=== PATIENT | female | born 1955 | race Caucasian/White ===

== ENCOUNTER 2025-10-13 23:38 | Emergency (ER) | payer MEDICARE, SELFPAY ==
--- OUTSIDE RECORDS SUMMARY | 2025-04-13 04:29 | XMS_ITS ---
Author Organization [facility] Address [address] [place] [address] Care Team Providers Care Guard Range Name Role Phone Migration, Provider Unavailable Unavailable REASON FOR VISIT TelEnc Social History Sex Assigned At : Social History Observation Description Sex Assigned At Female Encounters Encounter Location Date Provider Diagnosis [facility] [address] [place] [address] 04/13/2025 Provider Migration Plan Of Treatment Next Appt Details Provider Name:Alicia sams, 11/09/2025 03:00:00 PM, [address] [facility], [place], [address], [phone] Progress Notes * Bigg ROYALAnuragB:[birth year] (70 yo F)Acc No.[id number]:04/13/2025 Patient: Amisha FREDERICK :1955 A ge:69 Y S ex:Female Address:[address] [place] [address] [address], [place], [address] Subjective: * Chief Complaints: * T elEnc Objective: Past Vitals:* 07/10/2024 BP: 150/90 mm Hg, HR: 93 /mi n, Oxygen sat %: 95 %, Wt: 185.00 lbs, Wt-k.91 kg, Ht: 57.00 in, Ht-cm: 144.78 cm, BMI: 40.03 Index * 10/31/2023 BP: 138/88 mm Hg, HR: 104 /m in, Oxygen sat %: 93 %, Wt: 179.00 lbs, Wt-k.19 kg, Ht: 57.00 in, Ht-cm: 144.78 cm, BMI: 38.73 Index * 05/21/2023 BP: 140/90 mm Hg, HR: 79 /mi n, Oxygen sat %: 98 %, Wt: 173.00 lbs, Wt-k.47 kg, Ht: 57.00 in, Ht-cm: 144.78 cm, BMI: 37.44 Index * * Date:
--- OUTSIDE RECORDS SUMMARY | 2025-04-13 04:35 | XMS_ITS ---
Author Organization [facility] Address [address] [place] [address] Care Team Providers Care Roads Supervisor Name Role Phone Migration, Provider Unavailable Unavailable REASON FOR VISIT TelEnc Social History Sex Assigned At : Social History Observation Description Sex Assigned At Female Encounters Encounter Location Date Provider Diagnosis [facility] [address] [place] [address] 04/13/2025 Provider Migration Plan Of Treatment Next Appt Details Provider Name:Alicia sams, 11/09/2025 03:00:00 PM, [address] [facility], [place], [address], [phone] Progress Notes * Bigg ROYALAnuragB:[birth year] (70 yo F)Acc No.[id number]:04/13/2025 Patient: Amisha FREDERICK :1955 A ge:69 Y S ex:Female Address:[address] [place] [address] [address], [place], [address] Subjective: * Chief Complaints: * T elEnc [...]
--- OUTSIDE RECORDS SUMMARY | 2025-04-29 09:30 | XMS_ITS ---
Author Organization [facility] Address [address] [place] [address] Care Team Providers Care Crm Solution Architect Name Role Phone MRS. Alicia Craig Unavailable [phone] REASON FOR VISIT Follow Up Visit Social History Sex Assigned At : Social History Observation Description Sex Assigned At Female Encounters Encounter Location Date Provider Diagnosis [facility] [address] [place] [address] 04/29/2025 Alicia Craig Plan Of Treatment Next Appt Details Provider Name:Alicia A Aiden sams, 11/09/2025 03:00:00 PM, [address] [place], [address], [phone] Progress Notes * Davonte ROYAL:[birth year] (70 yo F)Acc No.[id number]:04/29/2025 Progress Notes Patient: Amisha Alvarado Provider: NICK Varghese :1955 A ge:69 Y S ex:Female Date:04/29/2025 Address:[address] [place], [place] [id number] Subjective: * Chief Complaints: * F ollow Up Visit Objective: Past Vitals:* 07/10/2024 BP: 150/90 mm [...] Ht-cm: 144.78 cm, BMI: 37.44 Index * Electronic signature of NICK Henderson on 10/14/2025 at 02:18 AM HOME BASED ASSISTANT Sign off status: Pending * Provider: NICK Varghese Date: 0 04/29/2025 Generated for Christine slaughter/Kelly/Mykel on: 1 12/15/2024 02:18 AM HOME BASED ASSISTANT
--- OUTSIDE RECORDS SUMMARY | 2025-05-22 09:30 | XMS_ITS ---
Author Organization [facility] Address [address] [place] [address] Care Team Providers Care Production Line Assembler Name Role Phone MRS. Alicia Craig Unavailable [phone] REASON FOR VISIT Follow Up Visit Social History Sex Assigned At : Social History Observation Description Sex Assigned At Female Encounters Encounter Location Date Provider Diagnosis [facility] [address] [place] [address] 05/22/2025 Alicia Craig Plan Of Treatment Next Appt Details Provider Name:Alicia A Aiden sams, 11/09/2025 03:00:00 PM, [address] [place], [address], [phone] Progress Notes * Davonte ROYAL:[birth year] (70 yo F)Acc No.[id number]:05/22/2025 Progress Notes Patient: Amisha Alvarado Provider: NICK Varghese :1955 A ge:70 Y S ex:Female Date:05/22/2025 Address:[address] [place] [phone] Subjective: * Chief Complaints: * F ollow [...] NICK Henderson on 10/14/2025 at 02:18 AM AIRPORT DUTY MANAGER Sign off status: Pending * Provider: NICK Varghese Date: 0 05/22/2025 Generated for Christine slaughter/Kelly/Mykel on: 1 12/15/2024 02:18 AM AIRPORT DUTY MANAGER
--- OUTSIDE RECORDS SUMMARY | 2025-06-12 07:00 | XMS_ITS ---
Author Organization [facility] Address [address] [place] [address] Care Team Providers Care Gyroscopic Instrument Tester Name Role Phone MRS. Alicia Craig Unavailable [phone] Results Component Value Reference Range Notes CBC With Differential/Platel et Reviewed date:07/24/2025 12:00:00 AM Interpretation: Performing Lab: Notes/Report: Baso (Absolute) 0.0 x10E3/uL 0.0-0.2 Basos 0 % Not Estab. Eos 1 % Not Estab. Eos (Absolute) 0.1 x10E3/uL 0.0-0.4 Hematocrit 48.8 % 34.0-46.6 Hemoglobin 15.4 g/dL 11.1-15.9 Immature Grans (Abs) 0.0 x10E3/uL 0.0-0.1 Immature Granulocytes 0 % Not Estab. Lymphs 33 % Not Estab. Lymphs (Absolute) 2.1 x10E3/uL 0.7-3.1 MCH 31.6 pg 26.6-33.0 MCHC 31.6 g/dL 31.5-35.7 MCV 100 fL 79-97 Monocytes 7 % Not Estab. Monocytes(Absolute) 0.5 x10E3/uL 0.1-0.9 Neutrophils 58 % Not Estab. Neutrophils (Absolute) 3.7 x10E3/uL 1.4-7.0 Platelets 171 x10E3/uL 150-450 RBC 4.87 x10E6/uL 3.77-5.28 RDW 13.1 % 11.7-15.4 WBC 6.5 x10E3/uL 3.4-10.8 Comp. Metabolic Panel (14) Reviewed date:07/24/2025 12:00:00 AM Interpretation: Performing Lab: Notes/Report: Albumin 4.0 g/dL 3.8-4.8 Alkaline Phosphatase 80 IU/L 49-135 ALT (SGPT) 36 IU/L 0-32 AST (SGOT) 28 IU/L 0-40 Bilirubin, Total 0.3 mg/dL 0.0-1.2 BUN 12 mg/dL 8-27 BUN/Creatinine Ratio 15 12-28 Calcium 9.0 mg/dL 8.7-10.3 Carbon Dioxide, Total 25 mmol/L 20-29 Chloride 103 mmol/L 96-106 Creatinine 0.78 mg/dL 0.57-1.00 eGFR 81 mL/min/1.73 >59 Globulin, Total 2.3 g/dL 1.5-4.5 Glucose 90 mg/dL 70-99 Potassium 4.2 mmol/L 3.5-5.2 Protein, Total 6.3 g/dL 6.0-8.5 Sodium 142 mmol/L 134-144 Hemoglobin A1c Reviewed date:07/24/2025 12:00:00 AM Interpretation: Performing Lab: Notes/Report: Hemoglobin A1c 5.8 % 4.8-5.6 LIPID PANEL Reviewed date:07/24/2025 12:00:00 AM Interpretation: Performing Lab: Notes/Report: CHOLESTEROL, TOTAL 170 mg/dL 100-199 HDL CHOLESTEROL 45 mg/dL >39 LDL Chol Calc (NIH) 103 mg/dL 0-99 TRIGLYCERIDES 121 mg/dL 0-149 VLDL Cholesterol Ish 22 mg/dL 5-40 TSH Rfx on Abnormal to Free T4 Reviewed date:07/24/2025 12:00:00 AM Interpretation: Performing Lab: Notes/Report: TSH 2.690 uIU/mL 0.450-4.500 REASON FOR VISIT CPE Social History Sex Assigned At : Social History Observation Description Sex Assigned At Female Vital Signs Blood pressure systolic 117 mm Hg 06/12/20 25 Blood pressure diastolic 82 mm Hg 025 Heart Rate 89 /min 06/12/2025 Height 57.00 in 06/12/2025 Weight 184.00 lbs 06/12/2025 BMI 39.82 kg/m2 06/12/2025 Height-cm 144.78 cm 06/12/2025 Weight-kg 83.46 kg 06/12/2025 Encounters Encounter Location Date Provider Diagnosis [facility] [address] [facility] [place] [address] 06/12/2025 Alicia Craig Encounter for screen ing for cardiovascular disorders Z13.6 ; Pain in right shoulder M25.511 ; Body mass index (BMI) 39.0-39.9, adult Z68.39 ; Pain in left foot M79.672 and Encounter for general adult medical examination without abnormal findings Z00.00 Assessments Encounter Date Diagnosis (ICD Code) Assessment Notes Treatment Notes Treatment Clinical Notes Section Notes 06/12/2025 Encounter for screening for cardiovascular disorders (ICD-10 - Z13.6) 06/12/2025 Pain in right shoulder (ICD-10 - M25.511) 06/12/2025 Body mass index (BMI) 39.0-39.9, adult (ICD-10 - Z68.39) 06/12/2025 Pain in left foot (ICD-10 - M79.672) 06/12/2025 Encounter for general adult medical examination without abnormal findings (ICD-10 - Z00.00) Plan Of Treatment Next Appt Details Provider Name:Alicia sams, 11/09/2025 03:00:00 PM, [address] [facility], [place], [address], [phone] History and Physical Notes * HPI (History of Present Illness) Category Sub-Category Detail Notes Category Not es Migrated HPI shoulder pain:: Location: right shoulder. The pain is aggravated by bending, lifting, movement and pushing. Associated symptoms include decreased mobility, joint tenderness and weakness. Hand Dominance: right., , foot pain:: Severity level is moderate-severe. Location: left foot. The pain is aggravated by bending, walking and standing. There are no relieving factors. Associated symptoms include decreased mobility, joint tenderness and weakness. Hand Dominance: right. Additional information: left foot bunion and hammer toe, has tried OTC splints etc with no relief, had a custom orthotic in the past but it was painful and did not fit well, she fell while wearing due to having to wear extra large shoes to accommodate the brace., , medicare preventive:: Functional Status: (Functional status has not changed) on 06/12/2025. SLUMS assessment completed, with a total score of 29, Normal. Cognitive Status: (Cognitive status has not changed) on 06/12/2025. The ''Up and Go'' test took less than 30 seconds andthe patient does not need help with activities of daily living. The patient is not at risk for falls. The patient has not fallen in the last year. The fall(s) did not result in injury. Patient's activity level is moderate. Patient exercises 2-3 times/week. The patient has smoke detectors, carbon monoxide detectors in the home. The patient does not have firearms in the home. There is no radon in the patient's home. Patient reports using a seatbelt in vehicles. Patient denies recent weight gain. Patient denies recent weight loss. Relevant history is negative for alcohol use Progress Notes * Starr ROYALB:[birth year] (70 yo F)Acc No.[id number]:06/12/2025 Progress Notes Patient: Amisha Alvarado Provider: NICK Varghese :1955 A ge:70 Y S ex:Female Date:06/12/2025 Address:[address] [place] [address] Subjective: * Chief Complaints: * C PE * HPI: M igrated HPI: shoulder pain:: Location: right shoulder. The pain is aggravated by bending, lifting, movement and pushing. Associated symptoms include decreased mobility, joint tenderness and weakness. Hand Dominance: right., , foot pain:: Severity level is moderate-severe. Location: left foot. The pain is aggravated by bending, walking and standing. There are no relieving factors. Associated symptoms include decreased mobility, joint tenderness and weakness. Hand Dominance: right. Additional information: left foot bunion and hammer toe, has tried OTC splints etc with no relief, had a custom orthotic in the past but it was painful and did not fit well, she fell while wearing due to having to wear extra large shoes to accommodate the brace., , medicare preventive:: Functional Status: (Functional status has not changed) on 06/12/2025. SLUMS assessment completed, with a total score of 29, Normal. Cognitive Status: (Cognitive status has not changed) on 06/12/2025. The ''Up and Go'' test took less than 30 seconds andthe patient does not need help with activities of daily living. The patient is not at risk for falls. The patient has not fallen in the last year. The fall(s) did not result in injury. Patient's activity level is moderate. Patient exercises 2-3 times/week. The patient has smoke detectors, carbon monoxide detectors in the home. The patient does not have firearms in the home. There is no radon in the patient's home. Patient reports using a seatbelt in vehicles. Patient denies recent weight gain. Patient denies recent weight loss. Relevant history is negative for alcohol use. * ROS: R OS System :ENMT :Ear drainage, Hearing loss, Nasal drainage, Otalgia, Sinus pressure and Sore throat. -Negative, ROS System : :Dysuria, Hematuria, Polyuria (Genitourinary), Urinary frequency, Urinary incontinence and Urinary retention. -Negative, ROS System :Constitutional :Chills, Fatigue, Fever, Malaise, Night sweats, Weight gain and Weight loss. -Negative, ROS System :Respiratory :Chronic cough, Cough, Dyspnea, Known TB exposure and Wheezing. -Negative, ROS System :MS :Difficulty with ADLs and Weakness in legs. -Negative, ROS System :Eyes :Eye discharge, Eye pain and Vision changes. -Negative, ROS System :Cardio :Chest pain, Claudication, Edema and Irregular heartbeat/palpitations. -Negative, ROS System :MS :Decreased mobility, Joint tenderness, Weakness. -Positive, ROS System :Allergic/Immuno :Contact allergy, Environmental allergies, Food allergies and Seasonal allergies. -Negative, ROS System :Psych :Anxiety, Depression and Insomnia. -Negative, ROS System :GI :Abdominal pain, Blood in stool, Change in stool pattern, Constipation, Decreased appetite, Diarrhea, Heartburn, Nausea and Vomiting. -Negative. Objective: * Vitals: B P: 117/82 mm Hg, HR: 89 /min, Wt: 184.00 lbs, Wt-k.46 kg, Ht: 57.00 in, Ht- cm: 144.78 cm, BMI: 39.82 Index. Past Vitals:* 07/10/2024 BP: 150/90 mm Hg, [...] in, Ht-cm: 144.78 cm, BMI: 37.44 Index Assessment: * Assessment: 1. P ain in right shoulder - M25.511 2 . P ain in left foot - M79.672 ? 3 . E ncounter for general adult medical examination without abnormal findings - Z00.00 4 . E ncounter for screening for cardiovascular disorders - Z13.6 5. B chandan mass index (BMI) 39.0-39.9, adult - Z68.39 Plan: * Labs: * L ab: CBC With Differential/Platelet (Collection Date & Time - 07/23/2025) Value Reference Range B aso (Absolute) 0.0 x10E3/uL 0.0-0.2 * B asos 0 % Not Estab. * E os 1 % Not Estab. * E os (Absolute) 0.1 x10E3/uL 0.0-0.4 * H ematocrit 48.8 % 34.0-46.6 * H emoglobin 15.4 g/dL 11.1-15.9 * I mmature Grans (Abs) 0.0 x10E3/uL 0.0-0.1 * I mmature Granulocytes 0 % Not Estab. * L ymphs 33 % Not Estab. * L ymphs (Absolute) 2.1 x10E3/uL 0.7-3.1 * M CH 31.6 pg 26.6-33.0 * M CHC 31.6 g/dL 31.5-35.7 * M CV 100 fL 79-97 * M onocytes 7 % Not Estab. * M onocytes(Absolute) 0.5 x10E3/uL 0.1-0.9 * N eutrophils 58 % Not Estab. * N eutrophils (Absolute) 3.7 x10E3/uL 1.4-7.0 * P latelets 171 x10E3/uL 150-450 * R BC 4.87 x10E6/uL 3.77-5.28 * R DW 13.1 % 11.7-15.4 * W BC 6.5 x10E3/uL 3.4-10.8 ?Lab: Comp. Metabolic Panel (14) (Collection Date & Time - 07/23/2025)* Value Reference Range A lbumin 4.0 g/dL 3.8-4.8 * A lkaline Phosphatase 80 IU/L 49-135 * A LT (SGPT) 36 IU/L 0-32 * A ST (SGOT) 28 IU/L 0-40 * B ilirubin, Total 0.3 mg/dL 0.0-1.2 * B UN 12 mg/dL 8-27 * B UN/Creatinine Ratio 15 12-28 * C alcium 9.0 mg/dL 8.7-10.3 * C arbon Dioxide, Total 25 mmol/L 20-29 * C hloride 103 mmol/L 96-106 * C reatinine 0.78 mg/dL 0.57-1.00 * e GFR 81 mL/min/1.73 >59 * G lobulin, Total 2.3 g/dL 1.5-4.5 * G lucose 90 mg/dL 70-99 * P otassium 4.2 mmol/L 3.5-5.2 * P rotein, Total 6.3 g/dL 6.0-8.5 * S odium 142 mmol/L 134-144 ?Lab: Hemoglobin A1c (Collection Date & Time - 07/23/2025)* Value Reference Range H emoglobin A1c 5.8 % 4.8-5.6 ?Lab: LIPID PANEL (Collection Date & Time - 07/23/2025)* Value Reference Range C HOLESTEROL, TOTAL 170 mg/dL 100-199 * H DL CHOLESTEROL 45 mg/dL >39 * L DL Chol Calc ([facility]) 103 mg/dL 0-99 * T RIGLYCERIDES 121 mg/dL 0-149 * V LDL Cholesterol Ish 22 mg/dL 5-40 ?Lab: TSH Rfx on Abnormal to Free T4 (Collection Date & Time - 07/23/2025)* Value Reference Range T SH 2.690 uIU/mL 0.450-4.500 * Procedure Codes: 9 3000 -ELECTROCARDIOGRAM, [id number] ANNUAL WELLNESS VST; PPS SUBSQT VST Billing Information: * Procedure Codes: 68040 -ELECTROCARDIOGRAM, COMPLETE. G0439 ANNUAL WELLNESS VST; PPS SUBSQT VST. * Electronic signature of Alicia NICK Craig on 10/14/2025 at 02:19 AM ACTUARIAL INTERNSHIP Sign off status: Pending * Provider: NICK Varghese Date: 0 06/12/2025 Generated for Christine slaughter/Kelly/Mykel on: 1 12/15/2024 02:19 AM ACTUARIAL INTERNSHIP
--- OUTSIDE RECORDS SUMMARY | 2025-08-22 03:00 | XMS_ITS ---
Author Organization [facility] Address [address] [place] [address] Care Team Providers Care Delivery Table Feeder Name Role Phone Migration, Provider Unavailable Unavailable REASON FOR VISIT EMR-[facility] Social History Sex Assigned At : Social History Observation Description Sex Assigned At Female Encounters Encounter Location Date Provider Diagnosis [facility] [address] [place] [address] 08/22/2025 Provider Migration Plan Of Treatment Medication Medication Name Sig Start Date Stop Date Notes hydroCHLOROthiazide 12.5 MG Tablet take 1 tablet by oral route every day Oral 12/12/2024 03/31/2025 Doxycycline Hyclate 100 MG Capsule take 1 capsule by oral route 2 times every day Oral 07/02/2023 07/11/2023 Lunesta 2 MG Tablet take 1 tablet by ora l route every day at bedtime Oral 04/09/2025 07/10/2025 valACYclovir HCl 1 GM Tablet take 1 tabl et by oral route every 24 hours Oral 11/25/2024 03/31/2025 Ciprofloxacin HCl 500 MG Tablet take 1 t ablet by oral route every 12 hours Oral 05/21/2023 07/30/2023 Wegovy 0.25 MG/0.5ML Solutio n Auto-injector inject (0.25MG) by subcutaneous route every week on the same day of each week Subcutaneous 10/31/2023 06/05/2024 Losartan Potassium 100 MG Tablet take 1 tablet by oral route every day Oral 11/25/2024 07/03/2025 Amoxicillin-Pot Clavulanate 875-125 MG Tablet take 1 tablet by oral route every 12 hours Oral 11/14/2023 11/23/2023 Next Appt Details Provider Name:Alicia Wolfe ry, 11/09/2025 03:00:00 PM, [address] [facility], [place], [address], [phone] Progress Notes * Starr LANEB:[birth year] (70 yo F)Acc No.[id number]:08/22/2025 Patient: Amisha FREDERICK :1955 A ge:70 Y S ex:Female Address:[address] [place] [address], [address], [address] * Refills Stop Ciprofloxacin HCl Tablet, 500 MG, Oral, 10, take 1 tablet by oral route every 12 hours Stop Doxycycline Hyclate Capsule, 100 MG, Oral, 20, take 1 capsule by oral route 2 times every day Stop Wegovy Solution Auto-injector, 0.25 MG/0.5ML, Subcutaneous, 2, inject (0.25MG) by subcutaneous route every week on the same day of each week Stop Amoxicillin-Pot Clavulanate Tablet, 875-125 MG, Oral, 20, take 1 tablet by oral route every 12 hours Stop Lunesta Tablet, 2 MG, Oral, 90, take 1 tablet by oral route every day at bedtime Stop valACYclovir HCl Tablet, 1 GM, Oral, 90, take 1 tablet by oral route every 24 hours Stop Amoxicillin-Pot Clavulanate Tablet, 875-125 MG, Oral, 20, take 1 tablet by oral route every 12 hours Stop hydroCHLOROthiazide Tablet, 12.5 MG, Oral, 90, take 1 tablet by oral route every day Stop Losartan Potassium Tablet, 100 MG, Oral, 90, take 1 tablet by oral route every day Stop Losartan Potassium Tablet, 100 MG, Oral, 90, take 1 tablet by oral route every day Stop Losartan Potassium Tablet, 100 MG, Oral, 90, take 1 tablet by oral route every day Stop Lunesta Tablet, 2 MG, Oral, 30, take 1 tablet by oral route every day at bedtime Stop Lunesta Tablet, 2 MG, Oral, 90, take 1 tablet by oral route every day at bedtime Stop hydroCHLOROthiazide Tablet, 12.5 MG, Oral, 90, take 1 tablet by oral route every day Stop Losartan Potassium Tablet, 100 MG, Oral, 90, take 1 tablet by oral route every day Stop valACYclovir HCl Tablet, 1 GM, Oral, 90, take 1 tablet by oral route every 24 hours Stop hydroCHLOROthiazide Tablet, 12.5 MG, Oral, 90, take 1 tablet by oral route every day Stop Losartan Potassium Tablet, 100 MG, Oral, 90, take 1 tablet by oral route every day Stop Lunesta Tablet, 2 MG, Oral, 90, take 1 tablet by oral route every day at bedtime Stop Amoxicillin-Pot Clavulanate Tablet, 875-125 MG, Oral, 20, take 1 tablet by oral route every 12 hours Stop Lunesta Tablet, 2 MG, Oral, 90, take 1 tablet by oral route every day at bedtime Stop Losartan Potassium Tablet, 100 MG, Oral, 0, take 1 tablet by oral route every day Stop Losartan Potassium Tablet, 100 MG, Oral, 90, take 1 tablet by oral route every day Stop Losartan Potassium Tablet, 100 MG, Oral, 90, take 1 tablet by oral route every day Stop valACYclovir HCl Tablet, 1 GM, Oral, 90, take 1 tablet by oral route every 24 hours Subjective: * Chief Complaints: * E MR-Paddy Objective: Past Vitals:* 07/10/2024 BP: 150/90 mm [...]
--- OUTSIDE RECORDS SUMMARY | 2025-08-23 03:00 | XMS_ITS ---
Author Organization [facility] Address [address] [place] [address] Care Team Providers Care Yarn Sizer Name Role Phone Migration, Provider Unavailable Unavailable Allergies No Known Allergies REASON FOR VISIT EMR-[facility] Medications Medication SIG (Take, Route, Frequency, Duration) Notes Start Date End Date Status [place] Bergamot 500 mg capsule 500 mg CAPSULE ORAL *Reorder from [employer] for eRx and Interaction Alerts* Active ZyrTEC Allergy 10 MG Tablet take 1 tablet by oral route every day at bedtime Oral Active Mucinex Maximum Strength 1200 MG Tablet Extended Release 12 Hour Oral Active Pepcid 20 MG Tablet take 1 tablet by oral route every day Oral Active Flonase Allergy Relief 50 MCG/ACT Suspension spray 1 - 2 spray by intranasal route every day in each nostril as needed Nasal Active Lunesta 2 MG Tablet TAKE 1 TABLET BY MOUTH AT BEDTIME Oral 07/10/2025 Active Claritin 10 mg Tablet take 1 tablet by oral route every day Oral Active valACYclovir HCl 1 GM Tablet take 1 tablet by oral route every 24 hours Oral 03/31/2025 Active hydroCHLOROthiazide 12.5 MG Tablet take 1 tablet by oral route every day Oral 03/31/2025 Active Losartan Potassium 100 MG Tablet take 1 tablet by oral route every day Oral 07/03/2025 Active Social History Sex Assigned At : Social History Observation Description Sex Assigned At Female Social History Additional Details Category Social Info Options Details Migrated Social History Migrated Social History Do you drink alcohol: N,Activity level: moderate,Exercise frequency: 2-3 times/week Encounters Encounter Location Date Provider Diagnosis [facility] [address] [place] [address] 08/23/2025 Provider Migration Plan Of Treatment Next Appt Details Provider Name:Alicia Goldman Aiden sams, 11/09/2025 03:00:00 PM, [address], [place], [address], [phone] Progress Notes * Starr ROYALB:[birth year] (70 yo F)Acc No.[id number]:08/23/2025 Patient: Amisah FREDERICK :1955 A ge:70 Y S ex:Female Address:[address] [place] [address], [address], [address] Subjective: * Chief Complaints: * E MR-Paddy * Medical History: Disease : Cancer of nose, basal cell * Surgical History: Sx_Procedure : mohs surgery Disease : chronic sinusitis, Sx_Procedure : sinus surgery * Family History: M igrated Family History: : Family history of Cardiovascular disease,Family history of Stroke,Family history of Basal cell carcinoma of skin,Family history of Hypertension. * Social History: M igrated Social History: M igrated Social History: Do you drink alcohol: N,Activity level: moderate,Exercise frequency: 2-3 times/week. * Medications: T akingCitrus Bergamot 500 mg capsule 500 mg CAPSULE ORAL , Notes to Pharmacist: *Reorder from [employer] for eRx and Interaction Alerts*valACYclovir HCl 1 GM Tablet take 1 tablet by oral route every 24 hours Oral Losartan Potassium 100 MG Tablet take 1 tablet by oral route every day Oral Lunesta 2 MG Tablet TAKE 1 TABLET BY MOUTH AT BEDTIME Oral Pepcid 20 MG Tablet take 1 tablet by oral route every day Oral ZyrTEC Allergy 10 MG Tablet take 1 tablet by oral route every day at bedtime Oral hydroCHLOROthiazide 12.5 MG Tablet take 1 tablet by oral route every day Oral Flonase Allergy Relief 50 MCG/ACT Suspension spray 1 - 2 spray by intranasal route every day in each nostril as needed Nasal Claritin 10 mg Tablet take 1 tablet by oral route every day Oral Mucinex Maximum Strength 1200 MG Tablet Extended Release 12 Hour Oral Taking [place] Bergamot 500 mg capsule 500 mg CAPSULE ORAL , Notes to Pharmacist: *Reorder from [employer] for eRx and Interaction Alerts*Taking valACYclovir HCl 1 GM Tablet take 1 tablet by oral route every 24 hours Oral Taking Losartan Potassium 100 MG Tablet take 1 tablet by oral route every day Oral Taking Lunesta 2 MG Tablet TAKE 1 TABLET BY MOUTH AT BEDTIME Oral Taking Pepcid 20 MG Tablet take 1 tablet by oral route every day Oral Taking ZyrTEC Allergy 10 MG Tablet take 1 tablet by oral route every day at bedtime Oral Taking hydroCHLOROthiazide 12.5 MG Tablet take 1 tablet by oral route every day Oral Taking Flonase Allergy Relief 50 MCG/ACT Suspension spray 1 - 2 spray by intranasal route every day in each nostril as needed Nasal Taking Claritin 10 mg Tablet take 1 tablet by oral route every day Oral Taking Mucinex Maximum Strength 1200 MG Tablet Extended Release 12 Hour Oral * Allergies: N .K.D.A. Objective: Past Vitals:* 07/10/2024 BP: 150/90 mm [...]
[2025-10-14 00:05] VITALS: BP 153/90; PULSE 86; RESP 18; O2SAT 96
--- NOTE | 2025-10-14 00:21 | PC.NURSE ---
EDP placed rhino rocket
--- NOTE | 2025-10-14 00:42 | ED.GENADULT ---
HPI - General Adult General Chief complaint: Epistaxis Stated complaint: nose bleed Time Seen by Provider: 10/14/25 00:22 History of Present Illness HPI narrative: 70-year-old female presents emergency department for evaluation for epistaxis. Patient states prior to arrival she been applying medication to her right nostril using a Q-tip when she had onset of bleeding. Related Data Home Medications ?Medication ?Instructions ?Recorded ?Confirmed ?Last Taken ?Type eszopiclone 2 mg tablet (Lunesta) 2 mg PO QHS 10/15/25 Unknown History hydrochlorothiazide 12.5 mg tablet 12.5 mg PO DAILY 10/15/25 Unknown History losartan 100 mg tablet 100 mg PO DAILY 10/15/25 Unknown History Allergies Allergy/AdvReac Type Severity Reaction Status Date / Time No Known Allergies Allergy Verified 10/15/25 13:55 Review of Systems Review of Systems: All systems reviewed & are unremarkable except as noted in HPI and below PMFSH Past Medical History Medical History Skin cancer Surgical History Surgical History (Updated 10/15/25 @ 14:10 by Kristie Jeffries CMA) H/O: hysterectomy Family History Family History Mother Hypertension Father Hypertension Cerebrovascular accident Grandparent Cerebrovascular accident Son No problems noted. Sibling Lymphoma Social History Social History Smoking status: Never smoker Alcohol intake: former Substance use: never Exam Narrative: APPEARANCE: Well appearing, no pain, no distress, well-nourished. HEAD: normocephalic, atraumatic. EYES: PERRLA/EOMI, conjunctivae clear. NOSE: Epistaxis thru right nostril EARS:TMS clear with good light reflex. THROAT: Pharynx clear, no exudate. NECK: Supple. No adenopathy, no masses. RESPIRATORY: Airway patent, respirations nonlabored. Clear to auscultation bilaterally, no rales, rhonchi, wheezing. CARDIOVASCULAR: Regular rate and rhythm without murmurs rubs or gallops. ABDOMINAL: Soft, nontender, nondistended, normal bowel sounds MUSCULOSKELETAL: Moves all extremities. Strength/ROM intact, No edema, No calf tenderness. NEURO: Alert. Cranial nerves II through XII intact. Good gait. Good coordination SKIN: Warm, dry. Normal Color Course Vital Signs Vital signs: Vital Signs Pulse Rate 86 10/14/25 00:05 Respiratory Rate 18 10/14/25 00:05 Blood Pressure 153/90 H 10/14/25 00:05 Pulse Oximetry 96 10/14/25 00:05 Oxygen Delivery Room Air 10/14/25 00:05 Pulse Rate 73 10/14/25 02:45 Respiratory Rate 18 10/14/25 02:45 Blood Pressure 141/84 H 10/14/25 02:45 Pulse Oximetry 98 10/14/25 02:45 Oxygen Delivery Room Air 10/14/25 00:05 Procedures Epistaxis Control right: Epistaxis Control Date: 10/14/25 Epistaxis Control Time: 00:43 Time Out Performed: Yes Nose Prepped With: oxymetazoline Direct Inspection: unable to visualize Clots Removed by: blowing nose Device Inserted: nasal tampon Device Size: 5 Patient Tolerated Procedure: well and no complications Epistaxis Control Narrative: Patient did have recurrent bleeding after the Afrin-soaked gauze was removed. Patient did have a 5.5 cm rhino rocket placed at 1:30 a.m.. MDM MDM Narrative Medical decision making narrative: 68-year-old female presents emergency department for evaluation for epistaxis. Patient reports she was applying medication to her dry nares with a Q-tip when she had onset the nasal bleeding out of the right naris. Patient did have an Afrin-soaked gauze was placed at 12:40 a.m. On re-evaluation at 2:30 a.m. patient has no active bleeding. Patient is comfortable the rhino rocket. Patient will be discharged home with outpatient follow-up with Dr. Roque Differential Diagnosis Differential Diagnosis: Epistaxis, thrombocytopenia Discharge Plan Discharge Clinical Impression: Epistaxis Patient Disposition: Home Condition: Stable Instructions: Antibiotic Form, Nosebleed (ED) Additional Instructions: Have close follow-up with Dr. Roque. You will need to have the rhino rocket removed in 1-2 days. Patient Language: Cape Verdean Prescriptions: No Action losartan 100 mg tablet 100 mg PO DAILY eszopiclone [Lunesta] 2 mg tablet 2 mg PO QHS hydrochlorothiazide 12.5 mg tablet 12.5 mg PO DAILY Follow-up/Referrals: Rudi Roque MD [Physician, Ear, Nose, Throat] UNKNOWN,DOCTOR [Non-Staff]
[2025-10-14 01:42] VITALS: BP 146/96; PULSE 78; RESP 19; O2SAT 99
--- OUTSIDE RECORDS SUMMARY | 2025-10-14 02:17 | XMS_ITS | Encounter Summary ---
Author Organization [facility] Address [address] [place] [address] Care Team Providers Care Automatic Paint Sprayer Operator Name Role Phone Lorena Santoro DO Primary Care Provider Encounter Details Date Type Department Care Team (Late st Contact Info) Description 08/21/2007 Outpatient Historical [facility] Internal Medicine [facility] and [address] [place] [address] [place] [address] [place] [address] Social History Tobacco Use Types Packs/Day Years Used Date Smoking Tobacco: Never Assessed Comments Unknown Sex and Gender Information Value Date Recorded Sex Assigned at Not on file Legal Sex Female 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
--- OUTSIDE RECORDS SUMMARY | 2025-10-14 02:17 | XMS_ITS | Encounter Summary ---
Author Organization [employer] Address [address] [place] [address] Care Team Providers Care Workcell Operator Name Role Phone Lorena Santoro DO Primary Care Provider [phone] Encounter Details Date Type Department Care Team (Latest Contact Info) Description 12/16/2008 Outpatient Historical [facility] Moisés Manzano MD [address] [address] Deviated Nasal Septum Social History Tobacco Use Types Packs/Day Years Used Date Smoking Tobacco: Never Assessed Comments No Sex and Gender Information Value Date Recorded Sex Assigned at Not on file Legal Sex Female 4:00 AM VOLUNTEER SERVICES ASSISTANT Gender Identity Not on file Sexual Orientation Not on file documented as of this encounter Plan of Treatment Not on file documented as of this encounter Procedures Procedure Name Priority Date/Time Associated Diagnosis Comments HEMOGLOBIN AND HEMATOCRIT Stat 01/04/2009 6:10 AM VOLUNTEER SERVICES ASSISTANT documented in this encounter Results * (ABNORMAL) HEMOGLOBIN AND HEMATOCRIT (01/04/2009 6:10 AM VOLUNTEER SERVICES ASSISTANT) HEMOGLOBIN 15.4(H) 11.8 - 14.8 g/dL [facility] HEMATOCRIT 45.7(H) 35.5 - 44.0 % [facility] Blood specimen (specimen) 01/04/2009 6:10 AM VOLUNTEER SERVICES ASSISTANT 01/04/2009 6:21 AM VOLUNTEER SERVICES ASSISTANT us Moisés Manzano MD HEMATOLOGY ORDERABLES Final Resu lt INTERFACE SYSTEM Refer to clinic/hospital department [facility] CLIA# [id number] [address] [place] [address] documented in this encounter Visit Diagnoses Diagnosis Deviated nasal septum documented in this encounter Care Teams Workcell Operator Relationship Specialty [place] [address] [facility] [address] [place] [id number] PCP - General Family Practice 10/21/20 12/22/21 documented as of this encounter
--- OUTSIDE RECORDS SUMMARY | 2025-10-14 02:17 | XMS_ITS | Clinical Summary ---
Author Organization [facility] Address [address] [place] [address] Care Team Providers Care Eco Industrial Development Consultant Name Role Phone Unavailable Primary Care Provider Unavailabl e Allergies Active Allergy Reactions Criticality Noted Date Comments Codeine Nausea and Vomiting Medium 11/15/2009 Medications cholecalciferol, Vitamin D3, (VITAMIN D3) 1,000 unit Capsule Take by mouth daily. Active lidocaine (Lidoderm) 5 % Adhesive Patch, Medicated Apply 1 Patch to affected area every 24 hours // 12 hours on and 12 hours off 10 Patch 9 Active Additional Information Patient not taking.Reported on 10/19/2021 hyoscyamine 0.125 mg Tablet, Sublingual Take 1 tablet up to 4 times daily for Spasms. 120 Tablet 09/22/2020 11:08 AM CURRICULUM SPECIALIST 0 Active traZODone (DESYREL) 50 mg tabletIndication s:Insomnia, unspecified type Take 0.5 Tablets (25 mg) by mouth daily at bedtime. 90 Tablet 1 11/07/2021 1:04 PM CURRICULUM SPECIALIST 1 Active trospium (SANCTURA) 20 mg Tablet Take 1 Tablet (20 mg) by mouth 2 times daily. 180 Tablet 1 08/24/2021 10:48 AM CDT 1 Active oxyCODONE-acetam inophen (Percocet) 5-325 mg tabletIndication s:Closed fracture of left wrist, initial encounter Take 1-2 Tablets by mouth every 4 hours as needed for severe pain. Max Daily Amount: 12 Tablets 20 Tablet 10/15/2021 2:17 PM CURRICULUM SPECIALIST 1 Active acetaminophen (TYLENOL) 325 mg tabletIndication s:Closed fracture of left wrist with routine healing, subsequent encounter Take 2 Tablets (650 mg) by mouth every 8 hours as needed for Pain. 60 Tablet 1 10/19/2021 11:37 AM CURRICULUM SPECIALIST 1 Active topiramate (Topamax) 50 mg tabletIndication s:Severe obesity (BMI 35.0-39.9) with comorbidity (CMS/HCC) Take 3 Tablets (150 mg) by mouth daily. 270 Tablet 3 11/07/2021 1:02 PM CURRICULUM SPECIALIST 1 Active Additional Information Patient taking differently:150 mg Oral DAILY,2 tablets, Reported on 10/27/2021 ibuprofen (MOTRIN) 800 mg tabletIndication s:Acute left-sided low back pain without sciatica Take 1 Tablet (800 mg) by mouth every 8 hours as needed for mild Pain. 30 Tablet 10/27/2021 1:19 PM CURRICULUM SPECIALIST 1 Active nicotine polacrilex (NICORETTE) 2 mg lozenge, mini 1 Lozenge (2 mg) by Mouth/Throat route every 2 hours as needed for Smoking Cessation. 135 Each 3 11/07/2021 1:04 PM CURRICULUM SPECIALIST 1 Active losartan (COZAAR) 50 mg tablet Take 2 Tablets (100 mg) by mouth daily // Pt will need to get labs before any more refills are approved 180 Tablet 3 11/28/2021 3:25 PM CURRICULUM SPECIALIST 2 Active Active Problems Problem Noted Date Diagnosed Date Fall 10/15/2021 Left wrist fracture 10/15/2021 Gait instability 10/15/2021 Leukocytosis (leucocytosis) 10/15/2021 Polycythemia 10/15/2021 Morbid obesity with body mass index of 40.0-49.9 10/15/2021 Crohn's disease of small and large intestines Tobacco use 07/30/2020 Benign essential HTN 01/02/2018 Severe obesity (BMI 35.0-39.9) with comorbidity 01/02/2018 Degenerative cervical spinal stenosis 08/01/2017 IBD (inflammatory bowel disease) 08/01/2017 DDD (degenerative disc disease), lumbar 07/04/20 Vitamin D deficiency 10/15/2014 Prediabetes 08/07/2011 Hypercholesteremia 08/07/2011 Fibromyalgia 03/15/2009 Urethral stricture unspecified Chronic interstitial cystitis Herpes simplex without mention of complication Regional enteritis of unspecified site Myalgia and myositis, unspecified Resolved Problems Problem Noted Date Diagnosed Date Resolved Date Ulcerative colitis without complications 10/21/2020 Immunizations Immunization Administration Dates Next Due (ADACEL/BOOSTRIX)(10 YR UP) TDAP VACCINE, 0.5ML, IM 10/14/2021 (PFIZER)(12 YR UP) COVID-19 VACCINE - EMERGENCY USE AUTHORIZATION, MRNA, [id number](PF) 30 MCG/0.3 ML IM SUSP 08/03/2021,02/01/2021,01/13/2021 (PNEUMOVAX 23)(50 YRS UP) PN EUMOCOCCAL POLYSACCHARIDE (PPV23) 0.5 ML, IM 07/09/2019 (SHINGRIX)(50 YRS UP) ZOSTER VACCINE RECOMBINANT, 0.5 ML, IM 06/14/2018,02/12/2018,01/20/2018 INFLUENZA VACCINE HIGH DOSE QUADRIVALENT 65 YR UP PF IM 07/15/2021,07/30/2020 Influenza Seasonal Unspecifi ed Formulation IM 06/30/2018,08/07/2017,09/05/2014,09/05,09/05/2012,09/18/2010 Influenza Vaccine High Dose 65+ Yrs IM 9 Influenza Vaccine Split 3+ Yrs PF IM 08/07/2017, 08/18/2014 PREVNAR (PCV13) pneumococcal 13-valent conjugate Vaccine 06/14/2018 Zoster Vaccine Live SQ 08/18/2014 Family History Medical History Relation Name Comments Cancer Brother j Hypertension Father f Stroke Father f Heart Disease Mother m Hypertension Mother m Melanoma Mother m Osteoporosis Mother m Relation Name Status Comments Brother j Father f Mother m Alive Social History Tobacco Use Types Packs/Day Years Used Date Smoking Tobacco: Former Cigarettes 0 Q uit: 09/05/2013 Smokeless Tobacco: Never Comments:mostly a non-smoker Alcohol Use Standard Drinks/Week Comments Never 0 (1 standard drink = 0.6 oz pur e alcohol) Financial Resource Strain Answer Date R ecorded How hard is it for you to pa y for the very basics like food, housing, medical care, and heating? Not very hard 10/27/2021 Food Insecurity Answer Date Recorded In the past 12 months, have you worried that your food would run out before you had money to buy more? Never true 10/27/2021 In the past 12 months, did y ou run out of food and didn't have money to buy more? Never true 10/27/2021 Transportation Needs Answer Date Record ed In the past 12 months, has l ack of transportation kept you from medical appointments or from getting medications? No 10/06 In the past 12 months, has l ack of transportation kept you from meetings, work, or from getting things needed for daily living? No 10/27/2021 Feeling Safe Answer Date Recorded Are you in a relationship wi th someone who hurts you emotionally and/or physically? No 07/14/2024 Comments No Sex and Gender Information Value Date Recorded Sex Assigned at Not on file Legal Sex Female 4:00 AM CURRICULUM SPECIALIST Gender Identity Not on file Sexual Orientation Not on file Last Filed Vital Signs Vital Sign Reading Time Taken Comments Blood Pressure 96/58 07/14/2024 10:35 AM CDT Pulse 95 07/14/2024 10:35 AM CDT Temperature 36.5 C (97.7 F) 07/14/2024 5:50 AM CDT Respiratory Rate 23 07/14/2024 5:40 AM CDT Oxygen Saturation 94% 07/14/2024 10:35 AM CDT Inhaled Oxygen Concentration - - Weight 80.7 kg (178 lb) 07/14/2024 5:36 AM CDT Height 144.8 cm (4' 9) 07/14/2024 5:36 AM CDT Body Mass Index 38.52 07/14/2024 5:36 AM CDT Plan of Treatment Health Maintenance Due Date Last Done Comments FIT-DNA Q 3 years 1998 FIT/FOBT Q 1 year 1998 Flex Sig/CT Colonography Q 5 years 1998 RSV VACCINE (60+ or ) (1 - Risk 50-74 years 1-dose series) 2003 INFLUENZA VACCINE (#1) 2025 , 07/30/2020, 08/28/2019, Additional history exists COVID-19 Vaccine (2024-2 6 season) 2025 08/03/2021, 02/01/2021, 01/13/2021 OSTEOPOROSIS SCREENING 11/02/2026 11/02/2021, 2013 COLORECTAL SCREENING 11/20/2028 11/20/2018 Colorectal Cancer Screening 11/20/2028 DTAP/TDAP/TD VACCINES (2 - T d or Tdap) 10/14/2031 10/14/2021 ZOSTER VACCINE Completed 06/14/2018, 02/03, 01/20/2018, Additional history exists PNEUMOCOCCAL VACCINE 50+ YEARS Completed 07/09/2019 , 06/14/2018 Procedures Procedure Name Priority Date/Time Associated Diagnosis Comments XR DEXA BONE DENSITY AXIAL 1 OR MORE SITES Routine 11/02/2021 1:50 PM CURRICULUM SPECIALIST Postmenopausal from Last 3 Months or Most Recently Relevant to Health Maintenance Results * XR DEXA BONE DENSITY AXIAL 1 OR MORE SITES (11/02/2021 1:50 PM CURRICULUM SPECIALIST) Anatomical Region Laterality Modality Digital Radiogra phy 11/02/2021 1:50 PM CURRICULUM SPECIALIST Narrative 11/02/2021 1:53 PM CURRICULUM SPECIALIST XR DEXA BONE DENSITY AXIAL 1 OR MORE SITES DATE: 11/02/2021 1:50 PM HISTORY: 66 years old Female with post menopausal symptoms. PROCEDURE: Planar images of the lumbar spine, forearm and hip(s) using a [employer] DEXA scanner for bone mineral density determination (BMD). Absolute bone mineral density measurements (in gm/cm^2) are available on the original PACS report. Comparison is made with the prior bone density performed 12/29/2013 FINDINGS: Lumbar Spine (L1-L4) T-score: +0.4 : +10.8% change Left femoral neck T-score: -1.6 : -4.1% change Right femoral neck T-score: -1.5 : +1.0% change Right Radius 33% T-score: -0.2 Comments: No prior right forearm bone mineral density measurements are available for comparison. IMPRESSION Osteopenic bone mineral density. STATISTICAL CHANGE: Significant increase in bone mineral density of the lumbar spine since the prior study. Significant decrease in bone mineral density of the left femoral neck since the prior study. A statistically significant change is defined as a change of greater than 2.5 standard deviations in the least significant difference from the prior study. Least significant differences are defined as follows: Lumbar spine: +/- 0.010 g/cm2 Femoral neck: +/- 0.014 g/cm2 Forearm radius 33%: +/- 0.020 g/cm2 DEFINITIONS: Normal: T-score above -1.0 Osteopenia T-score less than -1.0 and above -2.5 Osteoporosis: T-score < -2.5 FRAX FRACTURE RISK ASSESSMENT: Risk factors: None. 10 Year Probability Of Fracture -Major Osteoporotic: 9.0% -Hip: 1.2% -Comparison population: [place], A major osteoporotic fracture is defined as a fracture of the spine, forearm, hip or shoulder. FOLLOW-UP RECOMMENDATIONS: Patients without high risk factors for osteoporosis: T-score -1.0 to -1.5 - Consider repeat BMD in 5-10 years T-score -1.5 to -2.0 - Consider repeat BMD in 3-5 years T-score -2.0 to - 2.5 - Consider repeat BMD every 2 years Patients on treatment for osteoporosis: 1-2 years after initiation of treatment and every 2 [address] Alvin Mcdonough DO DICTATION LOCATION: Location 1 - [facility] Procedure Note Alvin Mcdonough DO - 11/02/2021 XR DEXA BONE DENSITY AXIAL 1 OR MORE SITES DATE: 11/02/2021 1:50 PM HISTORY: 66 years old Female with post menopausal symptoms. PROCEDURE: Planar images of the lumbar spine, forearm and hip(s) using a [employer] DEXA scanner for bone mineral density determination (BMD). Absolute bone mineral density measurements (in gm/cm^2) are available on the original PACS report. Comparison is made with the prior bone density performed 12/29/2013 FINDINGS: Lumbar Spine (L1-L4) T-score: +0.4 : +10.8% change Left femoral neck T-score: -1.6 : -4.1% change Right femoral neck T-score: -1.5 : +1.0% change Right Radius 33% T-score: -0.2 Comments: No prior right forearm bone mineral density measurements are available for comparison. IMPRESSION Osteopenic bone mineral density. STATISTICAL CHANGE: Significant increase in bone mineral density of the lumbar spine since the prior study. Significant decrease in bone mineral density of the left femoral neck since the prior study. A statistically significant change is defined as a change of greater than 2.5 standard deviations in the least significant difference from the prior study. Least significant differences are defined as follows: Lumbar spine: +/- 0.010 g/cm2 Femoral neck: +/- 0.014 g/cm2 Forearm radius 33%: +/- 0.020 g/cm2 DEFINITIONS: Normal: T-score above -1.0 Osteopenia T-score less than -1.0 and above -2.5 Osteoporosis: T-score < -2.5 FRAX FRACTURE RISK ASSESSMENT: Risk factors: None. 10 Year Probability Of Fracture -Major Osteoporotic: 9.0% -Hip: 1.2% -Comparison population: [place], A major osteoporotic fracture is defined as a fracture of the spine, forearm, hip or shoulder. FOLLOW-UP RECOMMENDATIONS: Patients without high risk factors for osteoporosis: T-score -1.0 to -1.5 - Consider repeat BMD in 5-10 years T-score -1.5 to -2.0 - Consider repeat BMD in 3-5 years T-score -2.0 to - 2.5 - Consider repeat BMD every 2 years Patients on treatment for osteoporosis: 1-2 years after initiation of treatment and every 2 [address] Alvin Mcdonough DO DICTATION LOCATION: Location [address] [place] [address] Lorena Santoro DO DIAGNOSTIC IMAGING ORDERABLES Final Result from Last 3 Months or Most Recently Relevant to Health Maintenance Insurance MEDICARE PART A AND B [facility] [id number] RX [employer] PLANS (INTERNAL) [facility] RX MEDIMPACT Member Subscriber Plan / Payer (Ef fective 2021-Present) Name:Amisha Royal Relation to Subscriber:Self Name:Amisha Royal Subscriber ID:Not on file Payer ID:Not on file Group ID:[id number] Type:RX Medicare Part D Address: [place], [place] Advance Directives For more information, please contact: [phone] * Full Code (Latest Code Status on File) Date Activated Date Inactivated Comments 10/15/2021 12:21 AM 10/15/2021 6:23 PM
--- OUTSIDE RECORDS SUMMARY | 2025-10-14 02:17 | XMS_ITS | Encounter Summary ---
Author Organization [facility] Address [address] [place] [address] Care Team Providers Care Governor Assembler Hydraulic Name Role Phone Lorena Santoro DO Primary Care Provider [phone] Encounter Details Date Type Department Care Team (Late st Contact Info) Description 08/01/2007 Outpatient Historical [facility] Internal Medicine [facility] and [address] [place] [address] [place] [address] [place] [address] Social History Tobacco Use Types Packs/Day Years Used Date Smoking Tobacco: Never Assessed Comments Unknown Sex and Gender Information Value Date Recorded Sex Assigned at Not on file Legal Sex Female 4: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
--- OUTSIDE RECORDS SUMMARY | 2025-10-14 02:17 | XMS_ITS | Clinical Summary ---
Author Organization [facility] Address [address] [place] [address] Care Team Providers Care Cabin Cleaner Name Role Phone No, Physician Primary Care Provider [phone] Allergies Active Allergy Reactions Criticality Noted Date Comments Codeine Other (See comments),Nausea And Vomiting Medium 11/15/2009 Reaction: UNKNOWN, Reaction: Reaction: UNKNOWN, Medications losartan (COZAAR) 100 mg tablet Take 100 mg by mouth every morning 05/10/2022 Active Active Problems Problem Noted Date Diagnosed Date Gait instability 10/15/2021 Left wrist fracture 10/15/2021 Leukocytosis (leucocytosis) 10/15/2021 Morbid obesity with body mass index of 40.0-49.9 10/15/2021 Polycythemia 10/15/2021 Bloating 06/20/2021 Chronic interstitial cystitis 06/20/2021 Herpes simplex virus (HSV) infection 06/20/2021 Intestinal malabsorption 06/20/2021 Myalgia and myositis, unspecified 06/20/2021 Urethral stricture 06/20/2021 Hallux valgus, bilateral 03/16/2021 Crohn's disease of small and large intestines Benign essential HTN 01/02/2018 Severe obesity (BMI 35.0-39.9) with comorbidity 01/02/2018 Degenerative cervical spinal stenosis 08/01/2017 IBD (inflammatory bowel disease) 08/01/2017 DDD (degenerative disc disease), lumbar 07/04/20 17 Pain of foot 04/28/2016 Vitamin D deficiency 10/15/2014 Hypercholesteremia 08/07/2011 Fibromyalgia 03/15/2009 Immunizations Immunization Administration Dates Next Due Influenza, Trivalent, High D ose, Split, Preservative Free, Intramuscular 08/28/2019 Influenza, Trivalent, IM (MDV) 8,09/05/2014,09/05/2013,09/05,09/18/2010 Influenza, Trivalent, Preser vative Free, Intramuscular 08/07/2017,08/18/2014 Influenza, Unspecified 07/15/2021,07/30/2020 Pfizer SARS-CoV-2 Monovalent Vaccination (12+ Yrs) PURPLE 08/03/2021 Pneumococcal Conjugate PCV 13 06/14/2018 Pneumococcal Polysaccharide PPV23 07/09/2019 Tdap 10/14/2021 ZOSTER LIVE 08/18/2014 ZOSTER Recombinant 06/14/2018,02/12/2018, 018 Surgical History Surgery Date Site/Laterality Comments FOOT SURGERY HAND SURGERY Medical History Medical History Date Comments Hypertension Arthritis Fibromyalgia Family History Medical History Relation Name Comments Heart disease Father Father Family history of cardiac disorder - (Added by TW Conv) Hypertension Father Father Family history of hypertension - (Added by TW Conv) Stroke Father Father Family history of cerebrovascular accident (CVA) - (Added by TW Conv) Heart disease Mother Mother Family history of cardiac disorder - (Added by TW Conv) Hypertension Mother Mother Family history of hypertension - (Added by TW Conv) Relation Name Status Comments Father Father Mother Mother Social History Tobacco Use Types Packs/Day Years Used Date Smoking Tobacco: Passive Smo ke Exposure - Never Smoker Vaping Smokeless Tobacco: Former Tobacco Cessation:Ready to Q uit: Yes Comments:occasional, during stressful times, short term Comments Unknown Sex and Gender Information Value Date Recorded Sex Assigned at Not on file Legal Sex Female 2:10 AM DIRECTOR SUPPLY CHAIN Gender Identity Female 03/11/2021 8:32 AM CDT Sexual Orientation Straight 03/11/2021 8: 32 AM CDT Last Filed Vital Signs Vital Sign Reading Time Taken Comments Blood Pressure 126/85 03/30/2021 11:04 AM CDT Pulse 83 03/30/2021 11:04 AM CDT Temperature - - Respiratory Rate - - Oxygen Saturation - - Inhaled Oxygen Concentration - - Weight 80.3 kg (177 lb) 06/20/2021 11:06 AM CDT Height 149.9 cm (4' 11) 06/20/2021 11:06 AM CDT Body Mass Index 35.75 06/20/2021 11:06 AM CDT Plan of Treatment Not on file Insurance MEDICARE REPU[employer] ACCESS CHOICE MEDICARE ANTHEM ACCESS CHOICE MEDICARE [facility] ACCESS CHOICE Care Teams Cabin Cleaner Relationship Specialty Start Date End Date No, Physician PCP - General 06/20/22
--- OUTSIDE RECORDS SUMMARY | 2025-10-14 02:17 | XMS_ITS | Encounter Summary ---
Author Organization [facility] Address [address] [place] [address] Care Team Providers Care Groundwater Consultant Name Role Phone Lorena Santoro DO Primary Care Provider [phone] Encounter Details Date Type Department Care Team (Late st Contact Info) Description 10/25/2007 Outpatient Historical [facility] Internal Medicine [facility] and [address] [place] [address] [place] [address] [place] [address] Social History Tobacco Use Types Packs/Day Years Used Date Smoking Tobacco: Never Assessed Comments Unknown Sex and Gender Information Value Date Recorded Sex Assigned at Not on file Legal Sex Female 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
--- OUTSIDE RECORDS SUMMARY | 2025-10-14 02:17 | XMS_ITS | Encounter Summary ---
Author Organization [facility] Address [address] [place] [address] Care Team Providers Care Branch Operation Evaluation Manager Name Role Phone Lorena Santoro DO Primary Care Provider [phone] Encounter Details Date Type Department Care Team (Late st Contact Info) Description 10/25/2007 Outpatient Historical [facility] Internal Medicine [facility] and [address] [place] [address] [place] [address] [address] [place] [address] Social History Tobacco Use Types Packs/Day Years Used Date Smoking Tobacco: Never Assessed Comments Unknown Sex and Gender Information Value Date Recorded Sex Assigned at Not on file Legal Sex Female 4: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
--- OUTSIDE RECORDS SUMMARY | 2025-10-14 02:18 | XMS_ITS | Encounter Summary ---
Author Organization [email or web address] Address [address] [place] [address] Care Team Providers Care Channel Man Name Role Phone Lorena Santoro DO Primary Care Provider [phone] Encounter Details Date Type Department Care Team (Late st Contact Info) Description 03/21/2006 Outpatient [facility] [address] [facility] [address] [place] [address] [facility] [address] [place] [address] Social History Tobacco Use Types Packs/Day Years Used Date Smoking Tobacco: Never Assessed Comments Unknown Sex and Gender Information Value Date Recorded Sex Assigned at Not on file Legal Sex Female 4:00 AM SERVICE DESK DIRECTOR Gender Identity Not on file Sexual Orientation Not on file documented as of this encounter Plan of Treatment Not on file documented as of this encounter Visit Diagnoses Not on filedocumented in this encounter Care Teams Channel Man Relationship Specialty [place] [address] [facility] [address] [place] [address] PCP - General Family Practice 10/21/20 12/22/21 documented as of this encounter
--- OUTSIDE RECORDS SUMMARY | 2025-10-14 02:18 | XMS_ITS | Encounter Summary ---
Author Organization [facility] Address [address] [place] [address] Care Team Providers Care Registry Nurse Name Role Phone Lorena aSntoro DO Primary Care Provider [phone] Encounter Details Date Type Department Care Team (Late st Contact Info) Description 02/05/2007 Outpatient Historical [facility] Internal Medicine [facility] [address] [place] [address] [address] [place] [address] Diamond Hatch MD [address] [facility] [address] [place] [address] Social History Tobacco Use Types Packs/Day Years Used Date Smoking Tobacco: Never Assessed Comments Unknown Sex and Gender Information Value Date Recorded Sex Assigned at Not on file Legal Sex Female 4:00 AM MEDICAL SUPERVISOR Gender Identity Not on file Sexual Orientation Not on file documented as of this encounter Plan of Treatment Not on file documented as of this encounter Visit Diagnoses Not on filedocumented in this encounter Care Teams Registry Nurse Relationship Specialty Start [place] [address] [facility] [address] [place] [address] PCP - General Family Practice 10/21/20 12/22/21 documented as of this encounter
--- OUTSIDE RECORDS SUMMARY | 2025-10-14 02:18 | XMS_ITS | Encounter Summary ---
Author Organization [facility] Address [address] [place] [address] Care Team Providers Care Research Advisor Name Role Phone Lorena Santoro DO Primary Care Provider [phone] Encounter Details Date Type Department Care Team (Late st Contact Info) Description 01/30/2007 Outpatient Historical [facility] Internal Medicine 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
--- OUTSIDE RECORDS SUMMARY | 2025-10-14 02:18 | XMS_ITS | Encounter Summary ---
Author Organization [facility] Address [address] [place] [address] Care Team Providers Care Agile Scrum Master Name Role Phone Lorena Santoro DO Primary Care Provider [phone] Encounter Details Date Type Department Care Team (Latest Contact Info) Description 12/22/2005 Inpatient Historical [facility] Natasha Jorge DO [address] [facility] [address] [place] [address] Musa Tony MD NO ADDRESS ON FILE INTRAMURAL LEIOMYOMA (Primary Dx) Social History Tobacco Use Types Packs/Day Years Used Date Smoking Tobacco: Never Assessed Comments Unknown Sex and Gender Information Value Date Recorded Sex Assigned at Not on file Legal Sex Female 4:00 AM SLAG MOTOR OPERATOR Gender Identity Not on file Sexual Orientation Not on file documented as of this encounter Plan of Treatment Not on file documented as of this encounter Procedures Procedure Name Priority Date/Time Associated Diagnosis Comments HEMOGLOBIN AND HEMATOCRIT Routine 12/23/2005 4:23 AM SLAG MOTOR OPERATOR POC , URINE Routine 12/22/2005 4:29 AM SLAG MOTOR OPERATOR HEMOGLOBIN AND HEMATOCRIT Routine 12/08/2005 2:55 PM SLAG MOTOR OPERATOR BASIC METABOLIC PANEL Routine 12/08/2005 2:55 PM SLAG MOTOR OPERATOR documented in this encounter Results * HEMOGLOBIN AND HEMATOCRIT (12/23/2005 4:23 AM SLAG MOTOR OPERATOR) HEMOGLOBIN 12.2 11.8 - 14.8 g/dL INTERFACE SYSTEM HEMATOCRIT 36.6 35.5 - 44.0 % INTERFACE SYSTEM 12/23/2005 4:23 AM SLAG MOTOR OPERATOR Bob [place] HEMATOLOGY ORDERABLES Final Res ult Performing Organization Address [facility] de Phone Number INTERFACE SYSTEM Refer to clinic/hospital department * POC , URINE (12/22/2005 4:29 AM SLAG MOTOR OPERATOR) HCG QUAL URINE Negative Negative INTER FACE SYSTEM SPECIFIC GRAVITY UA 1.030 1.001 - 1.035 INTERFACE SYSTEM 12/22/2005 4:29 AM SLAG MOTOR OPERATOR Natasha Jorge DO POINT OF CARE TESTING Final Re sult Performing Organization Address [facility] de Phone Number INTERFACE SYSTEM Refer to clinic/hospital department * (ABNORMAL) BASIC METABOLIC PANEL (12/08/2005 2:55 PM SLAG MOTOR OPERATOR) GLUCOSE 105 65 - 109 mg/dL INTERFACE SYSTEM CREATININE 1.0 0.4 - 1.2 mg/dL INTERFACE SYSTEM CALCIUM 9.7 8.6 - 10.2 mg/dL INTERFACE SYSTEM BUN 23(H) 6 - 20 mg/dL INTERFACE SYSTEM SODIUM 140 135 - 145 mmol/L INTERFACE SYSTEM POTASSIUM 4.0 3.5 - 4.9 mmol/L INTERFACE SYSTEM CHLORIDE 102 96 - 108 mmol/L INTERFACE SYSTEM CO2 28 22 - 30 mmol/L INTERFACE SYSTEM 12/08/2005 2:55 PM SLAG MOTOR OPERATOR Natasha Jorge DO CHEMISTRY ORDERABLES Final Res ult Performing Organization Address City/[facility] Co de Phone Number INTERFACE SYSTEM Refer to clinic/hospital department * (ABNORMAL) HEMOGLOBIN AND HEMATOCRIT (12/08/2005 2:55 PM SLAG MOTOR OPERATOR) HEMOGLOBIN 15.2(H) 11.8 - 14.8 g/dL INTERFACE SYSTEM HEMATOCRIT 43.5 35.5 - 44.0 % INTERFACE SYSTEM 12/08/2005 2:55 PM SLAG MOTOR OPERATOR us Natasha Jorge DO HEMATOLOGY ORDERABLES Final Re sult INTERFACE SYSTEM Refer to clinic/hospital department documented in this encounter Visit Diagnoses Diagnosis Intramural leiomyoma of uterus- Primary documented in this encounter Care Teams Agile Scrum Master Relationship Specialty Start [place] [address] [facility] [address] [place] [address] PCP - General Family Practice 10/21/20 12/22/21 documented as of this encounter
--- OUTSIDE RECORDS SUMMARY | 2025-10-14 02:18 | XMS_ITS | Encounter Summary ---
Author Organization [facility] Address [address] [place] [address] Care Team Providers Care Provider Enrollment Specialist Name Role Phone Lorena Santoro DO Primary Care Provider [phone] Encounter Details Date Type Department Care Team (Late st Contact Info) Description 03/06/2007 Outpatient Historical [facility] Internal Medicine [facility] and [address] [place] [address] [place] [address] [facility] [address] [place] [address] Social History Tobacco Use Types Packs/Day Years Used Date Smoking Tobacco: Never Assessed Comments Unknown Sex and Gender Information Value Date Recorded Sex Assigned at Not on file Legal Sex Female 4:00 AM PRODUCTION SUPERINTENDENT HYDRO Gender Identity Not on file Sexual Orientation Not on file documented as of this encounter Plan of Treatment Not on file documented as of this encounter Visit Diagnoses Not on filedocumented in this encounter Care Teams Provider Enrollment Specialist Relationship Specialty Start [place] [address] [facility] [address] [place] [address] PCP - General Family Practice 10/21/20 12/22/21 documented as of this encounter
--- OUTSIDE RECORDS SUMMARY | 2025-10-14 02:18 | XMS_ITS | Encounter Summary ---
Author Organization [facility] Address [address] [place] [address] Care Team Providers Care Kitchen Mechanic Name Role Phone Lorena Santoro DO Primary Care Provider [phone] Encounter Details Date Type Department Care Team (Late st Contact Info) Description 09/28/2005 Outpatient [facility] [address] [facility] [place] [facility] [place] [address] [place] [address] [facility] [address] [place] [address] Social History Tobacco Use Types Packs/Day Years Used Date Smoking Tobacco: Never Assessed Comments Unknown Sex and Gender Information Value Date Recorded Sex Assigned at Not on file Legal Sex Female 4:00 AM INTERNET MARKETING MANAGER Gender Identity Not on file Sexual Orientation Not on file documented as of this encounter Plan of Treatment Not on file documented as of this encounter Visit Diagnoses Not on filedocumented in this encounter Care Teams Kitchen Mechanic Relationship Specialty [place] [address] [facility] [address] [place] [address] PCP - General Family Practice 10/21/20 12/22/21 documented as of this encounter
--- OUTSIDE RECORDS SUMMARY | 2025-10-14 02:18 | XMS_ITS | Encounter Summary ---
Author Organization [facility] Address [address] [place] [address] Care Team Providers Care Pmo Lead Name Role Phone Lorena Santoro DO Primary Care Provider [phone] Encounter Details Date Type Department Care Team (Late st Contact Info) Description 11/22/2005 Outpatient Historical [facility] Support Services [facility] [address] [place] [address] [id number] Musa Tony MD NO ADDRESS ON FILE Social History Tobacco Use Types Packs/Day Years Used Date Smoking Tobacco: Never Assessed Comments Unknown Sex and Gender Information Value Date Recorded Sex Assigned at Not on file Legal Sex Female 4:00 AM CUTTER TENDER Gender Identity Not on file Sexual Orientation Not on file documented as of this encounter Plan of Treatment Not on file documented as of this encounter Visit Diagnoses Not on filedocumented in this encounter Care Teams Pmo Lead Relationship Specialty [place] [address] [facility] [address] [place] [address] PCP - General Family Practice 10/21/20 12/22/21 documented as of this encounter
--- OUTSIDE RECORDS SUMMARY | 2025-10-14 02:18 | XMS_ITS | Encounter Summary ---
Author Organization [facility] Address [address] [place] [address] Care Team Providers Care Machine Shop Apprentice Name Role Phone Lorena Santoro DO Primary Care Provider [phone] Encounter Details Date Type Department Care Team (Late st Contact Info) Description 05/20/2007 Outpatient Historical [facility] Internal Medicine [facility] and [address] [place] [address] [place] [address] [facility] [address] [place] [address] Social History Tobacco Use Types Packs/Day Years Used Date Smoking Tobacco: Never Assessed Comments Unknown Sex and Gender Information Value Date Recorded Sex Assigned at Not on file Legal Sex Female 4:00 AM INTERNAL RECRUITER Gender Identity Not on file Sexual Orientation Not on file documented as of this encounter Plan of Treatment Not on file documented as of this encounter Visit Diagnoses Not on filedocumented in this encounter Care Teams Machine Shop Apprentice Relationship Specialty [place] [address] [facility] [address] [place] [address] PCP - General Family Practice 10/21/20 12/22/21 documented as of this encounter
--- OUTSIDE RECORDS SUMMARY | 2025-10-14 02:18 | XMS_ITS | Encounter Summary ---
Author Organization [facility] Address [address] [place] [address] Care Team Providers Care Lead Database Administrator Name Role Phone Lorena Santoro DO Primary Care Provider [phone] Encounter Details Date Type Department Care Team (Late st Contact Info) Description 05/03/2007 Outpatient Historical [facility] Internal Medicine [facility] and [address] [place] [address] [place] [address] [facility] [address] [place] [address] Social History Tobacco Use Types Packs/Day Years Used Date Smoking Tobacco: Never Assessed Comments Unknown Sex and Gender Information Value Date Recorded Sex Assigned at Not on file Legal Sex Female 4:00 AM STEWARD DISHWASHER Gender Identity Not on file Sexual Orientation Not on file documented as of this encounter Plan of Treatment Not on file documented as of this encounter Visit Diagnoses Not on filedocumented in this encounter Care Teams Lead Database Administrator Relationship Specialty [place] [address] [facility] [address] [place] [address] PCP - General Family Practice 10/21/20 12/22/21 documented as of this encounter
--- OUTSIDE RECORDS SUMMARY | 2025-10-14 02:18 | XMS_ITS | Encounter Summary ---
Author Organization [facility] Address [address] [place] [address] Care Team Providers Care Business Continuity Planner Name Role Phone Lorena Santoro DO Primary Care Provider [phone] Encounter Details Date Type Department Care Team (Latest Contact Info) Description 02/17/2006 Outpatient [facility] [facility] [address] [place] [address] [place] [address] [facility] [address] [place] [address] Neck Sprain and Strain (Primary Dx) Social History Tobacco Use Types Packs/Day Years Used Date Smoking Tobacco: Never Assessed Comments Unknown Sex and Gender Information Value Date Recorded Sex Assigned at Not on file Legal Sex Female 4:00 AM MEMS DEVICE SCIENTIST Gender Identity Not on file Sexual Orientation Not on file documented as of this encounter Plan of Treatment Not on file documented as of this encounter Visit Diagnoses Diagnosis Sprain of neck- Primary documented in this encounter Care Teams Business Continuity Planner Relationship Specialty [place] [address] [facility] [address] [place] [address] PCP - General Family Practice 10/21/20 12/22/21 documented as of this encounter
--- OUTSIDE RECORDS SUMMARY | 2025-10-14 02:18 | XMS_ITS | Encounter Summary ---
Author Organization [facility] Address [address] [place] [address] Care Team Providers Care Hydro Plant Operator Name Role Phone Lorena Santoro DO Primary Care Provider [phone] Encounter Details Date Type Department Care Team (Latest Contact Info) Description 08/27/2005 Outpatient [facility] [employer] [facility] [address] [place] [address] [place] [address] [facility] [address] [place] [address] SPRAIN OF NECK (Primary Dx) Social History Tobacco Use Types Packs/Day Years Used Date Smoking Tobacco: Never Assessed Comments Unknown Sex and Gender Information Value Date Recorded Sex Assigned at Not on file Legal Sex Female 4:00 AM BALLAST REGULATOR OPERATOR Gender Identity Not on file Sexual Orientation Not on file documented as of this encounter Plan of Treatment Not on file documented as of this encounter Visit Diagnoses Diagnosis Sprain of neck- Primary documented in this encounter Care Teams Hydro Plant Operator Relationship Specialty Start [place] [address] [facility] [address] [place] [address] PCP - General Family Practice 10/21/20 12/22/21 documented as of this encounter
--- OUTSIDE RECORDS SUMMARY | 2025-10-14 02:18 | XMS_ITS | Encounter Summary ---
Author Organization [facility] Address [address] [place] [address] Care Team Providers Care Telecom Manager Name Role Phone Lorena Santoro DO Primary Care Provider [phone] Encounter Details Date Type Department Care Team (Late st Contact Info) Description 12/12/2005 Outpatient Historical [facility] Internal Medicine [facility] and [address] [place] [address] Diamond Hatch MD [address] [facility] [address] [place] [address] Social History Tobacco Use Types Packs/Day Years Used Date Smoking Tobacco: Never Assessed Comments Unknown Sex and Gender Information Value Date Recorded Sex Assigned at Not on file Legal Sex Female 4:00 AM LINE REPAIRER Gender Identity Not on file Sexual Orientation Not on file documented as of this encounter Plan of Treatment Not on file documented as of this encounter Visit Diagnoses Not on filedocumented in this encounter Care Teams Telecom Manager Relationship Specialty [place] [address] [facility] [address] [place] [address] PCP - General Family Practice 10/21/20 12/22/21 documented as of this encounter
--- OUTSIDE RECORDS SUMMARY | 2025-10-14 02:18 | XMS_ITS | Encounter Summary ---
Author Organization [facility] Address [address] [place] [address] Care Team Providers Care Touch Up Painter Name Role Phone Lorena Santoro DO Primary Care Provider [phone] Encounter Details Date Type Department Care Team (Late st Contact Info) Description 09/09/2005 Outpatient [facility] [address] [facility] [place] [facility] [place] [address] [place] [address] [facility] [address] [place] [address] Social History Tobacco Use Types Packs/Day Years Used Date Smoking Tobacco: Never Assessed Comments Unknown Sex and Gender Information Value Date Recorded Sex Assigned at Not on file Legal Sex Female 4:00 AM DEVELOPER DESIGNER Gender Identity Not on file Sexual Orientation Not on file documented as of this encounter Plan of Treatment Not on file documented as of this encounter Visit Diagnoses Not on filedocumented in this encounter Care Teams Touch Up Painter Relationship Specialty [place] [address] [facility] [address] [place] [address] PCP - General Family Practice 10/21/20 12/22/21 documented as of this encounter
--- OUTSIDE RECORDS SUMMARY | 2025-10-14 02:18 | XMS_ITS | Encounter Summary ---
Author Organization [facility] Address [address] [place] [address] Care Team Providers Care Flow Match Sofa Cutter Name Role Phone Lorena Santoro DO Primary Care Provider [phone] Encounter Details Date Type Department Care Team (Late st Contact Info) Description 05/11/2006 Outpatient Historical [facility] Al Macias MD [address] [address] Hypertrophy of Nasal Turbinates (Primary Dx); Chronic Rhinitis; Regional Enteritis of Unspecified Site (CMS/HCC); Unspecified Essential Hypertension; Tobacco Use Disorder; Depressive Disorder, not Elsewhere Classified Social History Tobacco Use Types Packs/Day Years Used Date Smoking Tobacco: Never Assessed Comments Unknown Sex and Gender Information Value Date Recorded Sex Assigned at Not on file Legal Sex Female 4:00 AM SHOWPLACE MANAGER Gender Identity Not on file Sexual Orientation Not on file documented as of this encounter Plan of Treatment Not on file documented as of this encounter Procedures Procedure Name Priority Date/Time Associated Diagnosis Comments HEMOGLOBIN AND HEMATOCRIT Routine 05/11/2006 9:04 AM CDT documented in this encounter Results * (ABNORMAL) HEMOGLOBIN AND HEMATOCRIT (05/11/2006 9:04 AM CDT) HEMOGLOBIN 15.2(H) 11.8 - 14.8 g/dL INTERFACE SYSTEM HEMATOCRIT 45.6(H) 35.5 - 44.0 % INTERFACE SYSTEM 05/11/2006 9:04 AM CDT us Al Macias MD HEMATOLOGY ORDERABLES Final Re sult INTERFACE SYSTEM Refer to clinic/hospital department documented in this encounter Visit Diagnoses Diagnosis Hypertrophy of nasal turbinates- Primary Chronic rhinitis Regional enteritis of unspecified site (CMS/HCC) Regional enteritis of unspecified site Unspecified essential hypertension Tobacco use disorder Depressive disorder, not elsewhere classified documented in this encounter Care Teams Flow Match Sofa Cutter Relationship Specialty [place] [address] [facility] [address] [place] [address] PCP - General Family Practice 10/21/20 12/22/21 documented as of this encounter
--- OUTSIDE RECORDS SUMMARY | 2025-10-14 02:18 | XMS_ITS | Encounter Summary ---
Author Organization [facility] Address [address] [place] [address] Care Team Providers Care Building Construction Ironworker Name Role Phone Lorena Santoro DO Primary Care Provider [phone] Encounter Details Date Type Department Care Team (Late st Contact Info) Description 09/06/2005 Outpatient Historical [facility] Internal Medicine [facility] and [address] [place] [address] [place] [address] [facility] [address] [place] [address] Social History Tobacco Use Types Packs/Day Years Used Date Smoking Tobacco: Never Assessed Comments Unknown Sex and Gender Information Value Date Recorded Sex Assigned at Not on file Legal Sex Female 4:00 AM FAMILY THERAPIST Gender Identity Not on file Sexual Orientation Not on file documented as of this encounter Plan of Treatment Not on file documented as of this encounter Visit Diagnoses Not on filedocumented in this encounter Care Teams Building Construction Ironworker Relationship Specialty [place] [address] [facility] [address] [place] [address] PCP - General Family Practice 10/21/20 12/22/21 documented as of this encounter
--- OUTSIDE RECORDS SUMMARY | 2025-10-14 02:18 | XMS_ITS | Encounter Summary ---
Author Organization [facility] Address [address] [place] [address] Care Team Providers Care Timber Packer Name Role Phone Lorena Santoro DO Primary Care Provider [phone] Encounter Details Date Type Department Care Team (Late st Contact Info) Description 05/02/2006 Outpatient Historical [facility] Internal Medicine [facility] and [address] [place] [address] [place] [address] [facility] [address] [place] [address] Social History Tobacco Use Types Packs/Day Years Used Date Smoking Tobacco: Never Assessed Comments Unknown Sex and Gender Information Value Date Recorded Sex Assigned at Not on file Legal Sex Female 4:00 AM DRILLING FIELD OPERATOR Gender Identity Not on file Sexual Orientation Not on file documented as of this encounter Plan of Treatment Not on file documented as of this encounter Visit Diagnoses Not on filedocumented in this encounter Care Teams Timber Packer Relationship Specialty [place] [address] [facility] [address] [place] [address] PCP - General Family Practice 10/21/20 12/22/21 documented as of this encounter
--- OUTSIDE RECORDS SUMMARY | 2025-10-14 02:18 | XMS_ITS | Encounter Summary ---
Author Organization [facility] Address [address] [place] [address] Care Team Providers Care Pole Maker Name Role Phone Lorena Santoro DO Primary Care Provider [phone] Encounter Details Date Type Department Care Team (Late st Contact Info) Description 12/08/2005 Outpatient Historical [facility] ([facility]) [address] [place] [address] Joshua Jaimes MD [address] [facility] [address] [place] [address] Social History Tobacco Use Types Packs/Day Years Used Date Smoking Tobacco: Never Assessed Comments Unknown Sex and Gender Information Value Date Recorded Sex Assigned at Not on file Legal Sex Female 4:00 AM PLANT PACKER Gender Identity Not on file Sexual Orientation Not on file documented as of this encounter Plan of Treatment Not on file documented as of this encounter Visit Diagnoses Not on filedocumented in this encounter Care Teams Pole Maker Relationship Specialty [place] [address] [facility] [address] [place] [address] PCP - General Family Practice 10/21/20 12/22/21 documented as of this encounter
--- OUTSIDE RECORDS SUMMARY | 2025-10-14 02:18 | XMS_ITS | Encounter Summary ---
Author Organization [facility] Address [address] [place] [address] Care Team Providers Care Supervisor Cell Room Name Role Phone Lorena Santoro DO Primary Care Provider [phone] Encounter Details Date Type Department Care Team (Late st Contact Info) Description 07/29/2007 Outpatient Historical [facility] Internal Medicine [facility] and [address] [place] [address] [place] [address] [facility] [address] [place] [address] Social History Tobacco Use Types Packs/Day Years Used Date Smoking Tobacco: Never Assessed Comments Unknown Sex and Gender Information Value Date Recorded Sex Assigned at Not on file Legal Sex Female 4:00 AM PLUMBING HARDWARE ASSEMBLER Gender Identity Not on file Sexual Orientation Not on file documented as of this encounter Plan of Treatment Not on file documented as of this encounter Visit Diagnoses Not on filedocumented in this encounter Care Teams Supervisor Cell Room Relationship Specialty Start [place] [address] [facility] [address] [place] [address] PCP - General Family Practice 10/21/20 12/22/21 documented as of this encounter
--- OUTSIDE RECORDS SUMMARY | 2025-10-14 02:18 | XMS_ITS | Encounter Summary ---
Author Organization [employer] Address [address] [place] [address] Care Team Providers Care Senior Service Aide Name Role Phone Lorena Santoro DO Primary Care Provider [phone] Encounter Details Date Type Department Care Team (Late st Contact Info) Description 11/22/2005 Inpatient Historical [facility] Gaum, Musa Murray MD NO ADDRESS ON FILE ENURESIS NOS (Primary Dx) Social History Tobacco Use Types Packs/Day Years Used Date Smoking Tobacco: Never Assessed Comments Unknown Sex and Gender Information Value Date Recorded Sex Assigned at Not on file Legal Sex Female 4:00 AM PRESS SET UP Gender Identity Not on file Sexual Orientation Not on file documented as of this encounter Plan of Treatment Not on file documented as of this encounter Visit Diagnoses Diagnosis Unspecified urinary incontinence- Primary documented in this encounter Care Teams Senior Service Aide Relationship Specialty [place] [address] [facility] [address] [place] [address] PCP - General Family Practice 10/21/20 12/22/21 documented as of this encounter
--- OUTSIDE RECORDS SUMMARY | 2025-10-14 02:18 | XMS_ITS | Encounter Summary ---
Author Organization [employer] Address [address] [place] [address] Care Team Providers Care Director Global Name Role Phone Lornea Santoro DO Primary Care Provider [phone] Encounter Details Date Type Department Care Team (Latest Contact Info) Description 01/16/2006 Outpatient [facility] for [employer] [facility] [address] [place] [address] [place] [address] [facility] [address] [place] [address] Neck Sprain and Strain (Primary Dx) Social History Tobacco Use Types Packs/Day Years Used Date Smoking Tobacco: Never Assessed Comments Unknown Sex and Gender Information Value Date Recorded Sex Assigned at Not on file Legal Sex Female 4:00 AM CONTINUITY TESTER Gender Identity Not on file Sexual Orientation Not on file documented as of this encounter Plan of Treatment Not on file documented as of this encounter Visit Diagnoses Diagnosis Sprain of neck- Primary documented in this encounter Care Teams Director Global Relationship Specialty [place] [address] [facility] [address] [place] [address] PCP - General Family Practice 10/21/20 12/22/21 documented as of this encounter
--- OUTSIDE RECORDS SUMMARY | 2025-10-14 02:19 | XMS_ITS | Encounter Summary ---
Author Organization [facility] Address [address] [place] [address] Care Team Providers Care Sec Reporting Consultant Name Role Phone Lorena Santoro DO Primary Care Provider [phone] Encounter Details Date Type Department Care Team (Late st Contact Info) Description 07/26/2005 Outpatient Historical [facility] Internal Medicine [facility] and [address] [place] [address] [place] [address] [facility] [address] [place] [address] Social History Tobacco Use Types Packs/Day Years Used Date Smoking Tobacco: Never Assessed Comments Unknown Sex and Gender Information Value Date Recorded Sex Assigned at Not on file Legal Sex Female 4:00 AM PROFESSIONAL SOCCER PLAYER Gender Identity Not on file Sexual Orientation Not on file documented as of this encounter Plan of Treatment Not on file documented as of this encounter Visit Diagnoses Not on filedocumented in this encounter Care Teams Sec Reporting Consultant Relationship Specialty [place] [address] [facility] [address] [place] [address] PCP - General Family Practice 10/21/20 12/22/21 documented as of this encounter
--- OUTSIDE RECORDS SUMMARY | 2025-10-14 02:19 | XMS_ITS | Encounter Summary ---
Author Organization [employer] Address [address] [place] [address] Care Team Providers Care Personal Security Specialist Name Role Phone Lorena Santoro DO Primary Care Provider [phone] Encounter Details Date Type Department Care Team (Latest Contact Info) Description 08/08/2005 Outpatient [facility] for [employer] [facility] [address] [place] [address] [place] [address] [facility] [address] [place] [address] SCIATICA (Primary Dx) Social History Tobacco Use Types Packs/Day Years Used Date Smoking Tobacco: Never Assessed Comments Unknown Sex and Gender Information Value Date Recorded Sex Assigned at Not on file Legal Sex Female 4:00 AM CELLAR PUMPER Gender Identity Not on file Sexual Orientation Not on file documented as of this encounter Plan of Treatment Not on file documented as of this encounter Visit Diagnoses Diagnosis Sciatica- Primary documented in this encounter Care Teams Personal Security Specialist Relationship Specialty [place] [address] [facility] [address] [place] [address] PCP - General Family Practice 10/21/20 12/22/21 documented as of this encounter
--- OUTSIDE RECORDS SUMMARY | 2025-10-14 02:19 | XMS_ITS | Encounter Summary ---
Author Organization [employer] [facility] Address [address] [place] [address] Care Team Providers Care Benefits Manager Name Role Phone Lorena Santoro DO Primary Care Provider [phone] Encounter Details Date Type Department Care Team (Late st Contact Info) Description 11/23/2003 Outpatient Historical [facility] [place] [address] [place] [address] Willow Enriquez MD [address] [place] [address] Social History Tobacco Use Types Packs/Day Years Used Date Smoking Tobacco: Never Assessed Comments Unknown Sex and Gender Information Value Date Recorded Sex Assigned at Not on file Legal Sex Female 4:00 AM DANCE MASTER Gender Identity Not on file Sexual Orientation Not on file documented as of this encounter Plan of Treatment Not on file documented as of this encounter Visit Diagnoses Not on filedocumented in this encounter Care Teams Benefits Manager Relationship Specialty [place] [address] [facility] [address] [place] [address] PCP - General Family Practice 10/21/20 12/22/21 documented as of this encounter
--- OUTSIDE RECORDS SUMMARY | 2025-10-14 02:19 | XMS_ITS | Encounter Summary ---
Author Organization [employer] Address [address] [place] [address] Care Team Providers Care Reducing Salon Attendant Name Role Phone Lorena Santoro DO Primary Care Provider [phone] Encounter Details Date Type Department Care Team (Latest Contact Info) Description 07/26/[address] [facility] Center for [employer] [facility] [address] [facility] [place] [address] [place] [address] [facility] [address] [place] [address] PHYSICAL THERAPY NEC (Primary Dx) Social History Tobacco Use Types Packs/Day Years Used Date Smoking Tobacco: Never Assessed Comments Unknown Sex and Gender Information Value Date Recorded Sex Assigned at Not on file Legal Sex Female 4:00 AM MUTUEL TELLER Gender Identity Not on file Sexual Orientation Not on file documented as of this encounter Plan of Treatment Not on file documented as of this encounter Visit Diagnoses Diagnosis Other physical therapy- Primary documented in this encounter Care Teams Reducing Salon Attendant Relationship Specialty [place] [address] [facility] [address] [place] [address] PCP - General Family Practice 10/21/20 12/22/21 documented as of this encounter
--- OUTSIDE RECORDS SUMMARY | 2025-10-14 02:19 | XMS_ITS | Encounter Summary ---
Author Organization [facility] Address [address] [place] [address] Care Team Providers Care Vendor Quality Supervisor Name Role Phone Lorena Santoro DO Primary Care Provider [phone] Encounter Details Date Type Department Care Team (Late st Contact Info) Description 04/22/[address] 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 [address] [place] [address] PCP - General Family Practice 10/21/20 12/22/21 documented as of this encounter
--- OUTSIDE RECORDS SUMMARY | 2025-10-14 02:19 | XMS_ITS | Encounter Summary ---
Author Organization [employer] Address [address] [place] [address] Care Team Providers Care Correspondence Dictator Name Role Phone Lorena Santoro DO Primary Care Provider [phone] Encounter Details Date Type Department Care Team (Latest Contact Info) Description 06/24/2005 Outpatient [facility] Center for [employer] [facility] [address] [address] [place] [address] [facility] [address] [place] [address] SPRAIN OF NECK (Primary Dx) Social History Tobacco Use Types Packs/Day Years Used Date Smoking Tobacco: Never Assessed Comments Unknown Sex and Gender Information Value Date Recorded Sex Assigned at Not on file Legal Sex Female 4:00 AM EVENT LIGHTING SPECIALIST Gender Identity Not on file Sexual Orientation Not on file documented as of this encounter Plan of Treatment Not on file documented as of this encounter Visit Diagnoses Diagnosis Sprain of neck- Primary documented in this encounter Care Teams Correspondence Dictator Relationship Specialty [place] [address] [facility] [address] [place] [address] PCP - General Family Practice 10/21/20 12/22/21 documented as of this encounter
--- OUTSIDE RECORDS SUMMARY | 2025-10-14 02:19 | XMS_ITS | Encounter Summary ---
Author Organization [facility] Address [address] [place] [address] Care Team Providers Care Repairer Cylinder Heads Name Role Phone Lorena Santoro DO Primary Care Provider [phone] Encounter Details Date Type Department Care Team (Late st Contact Info) Description 12/22/2003 Outpatient Historical [facility] Internal Medicine [facility] and [address] [place] [address] [place] [address] [facility] [address] [place] [address] Social History Tobacco Use Types Packs/Day Years Used Date Smoking Tobacco: Never Assessed Comments Unknown Sex and Gender Information Value Date Recorded Sex Assigned at Not on file Legal Sex Female 4:00 AM FILM SOUND COORDINATOR Gender Identity Not on file Sexual Orientation Not on file documented as of this encounter Plan of Treatment Not on file documented as of this encounter Visit Diagnoses Not on filedocumented in this encounter Care Teams Repairer Cylinder Heads Relationship Specialty [place] [address] [facility] [address] [place] [address] PCP - General Family Practice 10/21/20 12/22/21 documented as of this encounter
--- OUTSIDE RECORDS SUMMARY | 2025-10-14 02:19 | XMS_ITS | Encounter Summary ---
Author Organization [facility] Address [address] [place] [address] Care Team Providers Care Social Media Content Specialist Name Role Phone Lorena Santoro DO Primary Care Provider [phone] Encounter Details Date Type Department Care Team (Late st Contact Info) Description 02/16/2005 Outpatient Historical [facility] Internal Medicine [facility] and [address] [place] [address] [place] [address] [facility] [address] [place] [address] Social History Tobacco Use Types Packs/Day Years Used Date Smoking Tobacco: Never Assessed Comments Unknown Sex and Gender Information Value Date Recorded Sex Assigned at Not on file Legal Sex Female 4:00 AM LEASE OUT WORKER Gender Identity Not on file Sexual Orientation Not on file documented as of this encounter Plan of Treatment Not on file documented as of this encounter Visit Diagnoses Not on filedocumented in this encounter Care Teams Social Media Content Specialist Relationship Specialty [place] [address] [facility] [address] [place] [address] PCP - General Family Practice 10/21/20 12/22/21 documented as of this encounter
--- OUTSIDE RECORDS SUMMARY | 2025-10-14 02:19 | XMS_ITS | Encounter Summary ---
Author Organization [employer] Address [address] [place] [address] Care Team Providers Care Windmill Technician Name Role Phone Lorena Santoro DO Primary Care Provider [phone] Encounter Details Date Type Department Care Team (Late st Contact Info) Description 02/25/2005 Outpatient [facility] [place] [address] [facility] [address] [place] [address] ABNORMAL FINDINGS-GI TRACT (Primary Dx) Social History Tobacco Use Types Packs/Day Years Used Date Smoking Tobacco: Never Assessed Comments Unknown Sex and Gender Information Value Date Recorded Sex Assigned at Not on file Legal Sex Female 4:00 AM MOLDING ROOM SUPERVISOR Gender Identity Not on file Sexual Orientation Not on file documented as of this encounter Plan of Treatment Not on file documented as of this encounter Visit Diagnoses Diagnosis Nonspecific (abnormal) findings on radiological and other examination of gastrointestinal tract- Primary documented in this encounter Care Teams Windmill Technician Relationship Specialty Start [place] [address] [facility] [address] [place] [address] PCP - General Family Practice 10/21/20 12/22/21 documented as of this encounter
--- OUTSIDE RECORDS SUMMARY | 2025-10-14 02:19 | XMS_ITS | Encounter Summary ---
Author Organization [facility] Address [address] [place] [address] Care Team Providers Care Claims Representative Name Role Phone Lorena Santoro DO Primary Care Provider [phone] Encounter Details Date Type Department Care Team (Late st Contact Info) Description 01/12/2005 Outpatient Historical [facility] Internal Medicine [facility] and [address] [place] [address] [place] [address] [facility] [address] [place] [address] Social History Tobacco Use Types Packs/Day Years Used Date Smoking Tobacco: Never Assessed Comments Unknown Sex and Gender Information Value Date Recorded Sex Assigned at Not on file Legal Sex Female 4:00 AM HORSEBACK RIDING INSTRUCTOR Gender Identity Not on file Sexual Orientation Not on file documented as of this encounter Plan of Treatment Not on file documented as of this encounter Visit Diagnoses Not on filedocumented in this encounter Care Teams Claims Representative Relationship Specialty [place] [address] [facility] [address] [place] [address] PCP - General Family Practice 10/21/20 12/22/21 documented as of this encounter
--- OUTSIDE RECORDS SUMMARY | 2025-10-14 02:19 | XMS_ITS | Encounter Summary ---
Author Organization [employer] Address [address] [place] [address] Care Team Providers Care Russet Repairer Name Role Phone Lorena Santoro DO Primary Care Provider [phone] Encounter Details Date Type Department Care Team (Late st Contact Info) Description 05/16/2005 Emergency [facility] Joshua [place] MD NO ADDRESS ON FILE Er, Authorized P NO ADDRESS ON FILE SPRAIN OF NECK (Primary Dx) Social History Tobacco Use Types Packs/Day Years Used Date Smoking Tobacco: Never Assessed Comments Unknown Sex and Gender Information Value Date Recorded Sex Assigned at Not on file Legal Sex Female 4:00 AM DOCKING SAW OPERATOR Gender Identity Not on file Sexual Orientation Not on file documented as of this encounter Plan of Treatment Not on file documented as of this encounter Visit Diagnoses Diagnosis Sprain of neck- Primary documented in this encounter Care Teams Russet Repairer Relationship Specialty [place] [address] [address] PCP - General Family Practice 10/21/20 12/22/21 documented as of this encounter
--- OUTSIDE RECORDS SUMMARY | 2025-10-14 02:19 | XMS_ITS | Encounter Summary ---
Author Organization [employer] Address [address] [place] [address] Care Team Providers Care Flexographic Printing Press Operator Name Role Phone Lorena Santoro DO Primary Care Provider [phone] Encounter Details Date Type Department Care Team (Latest Contact Info) Description 05/23/2005 Outpatient [facility] for [employer] [facility] [address] [address] [place] [address] [facility] [address] [place] [address] SPRAIN OF NECK (Primary Dx) Social History Tobacco Use Types Packs/Day Years Used Date Smoking Tobacco: Never Assessed Comments Unknown Sex and Gender Information Value Date Recorded Sex Assigned at Not on file Legal Sex Female 4:00 AM BEACH LIFEGUARD Gender Identity Not on file Sexual Orientation Not on file documented as of this encounter Plan of Treatment Not on file documented as of this encounter Visit Diagnoses Diagnosis Sprain of neck- Primary documented in this encounter Care Teams Flexographic Printing Press Operator Relationship Specialty Start [place] [address] [facility] [address] [place] [address] PCP - General Family Practice 10/21/20 12/22/21 documented as of this encounter
--- OUTSIDE RECORDS SUMMARY | 2025-10-14 02:19 | XMS_ITS | Encounter Summary ---
Author Organization [facility] Address [address] [place] [address] Care Team Providers Care Tin Stacker Name Role Phone Loerna Santoro DO Primary Care Provider [phone] Encounter Details Date Type Department Care Team (Late st Contact Info) Description 11/16/2003 Outpatient Historical [facility] Internal Medicine [facility] and [address] [place] [address] [place] [address] [facility] [address] [place] [address] Social History Tobacco Use Types Packs/Day Years Used Date Smoking Tobacco: Never Assessed Comments Unknown Sex and Gender Information Value Date Recorded Sex Assigned at Not on file Legal Sex Female 4:00 AM INSURANCE ADMINISTRATIVE ASSISTANT Gender Identity Not on file Sexual Orientation Not on file documented as of this encounter Plan of Treatment Not on file documented as of this encounter Visit Diagnoses Not on filedocumented in this encounter Care Teams Tin Stacker Relationship Specialty [place] [address] [facility] [address] [place] [address] PCP - General Family Practice 10/21/20 12/22/21 documented as of this encounter
--- OUTSIDE RECORDS SUMMARY | 2025-10-14 02:19 | XMS_ITS | Encounter Summary ---
Author Organization [employer] Address [address] [place] [address] Care Team Providers Care Aircraft Fueler Name Role Phone Lorena Santoro DO Primary Care Provider [phone] Encounter Details Date Type Department Care Team (Latest Contact Info) Description 11/23/2003 Outpatient Historical [facility] Willow Enriquez MD [address] [facility] [address] [place] [address] SKIN SENSATION DISTURB (Primary Dx) Social History Tobacco Use Types Packs/Day Years Used Date Smoking Tobacco: Never Assessed Comments Unknown Sex and Gender Information Value Date Recorded Sex Assigned at Not on file Legal Sex Female 4:00 AM STEEL CRANE OPERATOR Gender Identity Not on file Sexual Orientation Not on file documented as of this encounter Plan of Treatment Not on file documented as of this encounter Visit Diagnoses Diagnosis Disturbance of skin sensation- Primary documented in this encounter Care Teams Aircraft Fueler Relationship Specialty [place] [address] [facility] [address] [place] [address] PCP - General Family Practice 10/21/20 12/22/21 documented as of this encounter
--- OUTSIDE RECORDS SUMMARY | 2025-10-14 02:19 | XMS_ITS | Encounter Summary ---
Author Organization [facility] Address [address] [place] [address] Care Team Providers Care Laborer Starch Factory Name Role Phone Lorena Santoro DO Primary Care Provider [phone] Encounter Details Date Type Department Care Team (Latest Contact Info) Description 11/23/2003 Outpatient Historical [facility] [place]PH Gill[place], [place] [address] [facility] [address] [place] [address] JOINT PAIN-SHLDER (Primary Dx) Social History Tobacco Use Types Packs/Day Years Used Date Smoking Tobacco: Never Assessed Comments Unknown Sex and Gender Information Value Date Recorded Sex Assigned at Not on file Legal Sex Female 4: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
--- OUTSIDE RECORDS SUMMARY | 2025-10-14 02:19 | XMS_ITS | Encounter Summary ---
Author Organization [facility] Address [address] [place] [address] Care Team Providers Care Hotel Director Name Role Phone Lorena Santoro DO Primary Care Provider [phone] Encounter Details Date Type Department Care Team (Late st Contact Info) Description 05/19/2005 Outpatient Historical [facility] Internal Medicine [facility] and [address] [place] [address] [place] [address] [facility] [address] [place] [address] Social History Tobacco Use Types Packs/Day Years Used Date Smoking Tobacco: Never Assessed Comments Unknown Sex and Gender Information Value Date Recorded Sex Assigned at Not on file Legal Sex Female 4:00 AM ANIMAL SKINNER Gender Identity Not on file Sexual Orientation Not on file documented as of this encounter Plan of Treatment Not on file documented as of this encounter Visit Diagnoses Not on filedocumented in this encounter Care Teams Hotel Director Relationship Specialty Start [place] [address] [facility] [address] [place] [address] PCP - General Family Practice 10/21/20 12/22/21 documented as of this encounter
[2025-10-14 02:40] VITALS: BP 141/84; PULSE 73; RESP 18; O2SAT 98
[2025-10-14 02:45] VITALS: BP 141/84; PULSE 73; RESP 18; O2SAT 98
== END 2025-10-14 02:47 | disposition home or self-care (01) ==
PROVIDERS: Emergency Provider Emergency Medicine; PCP Nurse Practitioner Family
DX: R04.0 Epistaxis (principal); Z85.828 Personal history of other malignant neoplasm of skin; Z90.710 Acquired absence of both cervix and uterus
CPT/HCPCS: 30901; 99283; A9270